=== PATIENT | female | born 1935 | race Caucasian/White ===

== ENCOUNTER 2020-09-25 20:50 | Inpatient (IN) | payer MEDICARE ==
[~2020-09-25] VITALS: Ht 162.6 cm; Wt 77.7 kg
[~2020-09-25 20:50] MED LIST: BUPR100T6 PO; ESOM40CA25 PO; FOLI1TAB16 PO; HYDR-3135 PO; IBUP200T77 PO; LOSA100T14 PO; LOSA25TA54 PO; METH2.5T PO; METO-239 PO; PHEN-318 PO; SERT-267 PO; TAMS0.4C97 PO; TOFA5TAB PO
[2020-09-25] MEDS ORDERED: cefTRIAXone IV Push 1 GM VIAL. IVP ONE (21:45)
[2020-09-25] MEDS ORDERED: IV NORMAL SALINE 1000ML BAG 1,000 ML IV ONE (21:45)
[2020-09-25 22:13] LABS: CALCIUM 9.1 mg/dL (8.5-10.1); CREATININE 2.6 mg/dL (0.6-1.0); GFR 17.5; POTASSIUM 3.6 mmol/L (3.5-5.1)
[2020-09-25 22:22] LABS: BASO # 0.1 x10^3/uL (0.0-0.2); BASO % 0 % (0-3); EOS # 0.1 x10^3/uL (0.0-0.7); EOS % 1 % (0-3); HEMATOCRIT 24.6 % (36.0-47.0); HEMOGLOBIN 7.1 g/dL (12.0-15.5); LYMPH # 0.7 x10^3/uL (1.0-4.8); LYMPH % 5 % (24-48); MEAN CORPUSCULAR HEMOGLOBIN 19 pg (25-35); MEAN CORPUSCULAR HGB CONC 29 g/dL (31-37); MEAN CORPUSCULAR VOLUME 65 fL (79-100); MONO # 1.2 x10^3/uL (0.0-1.1); MONO % 9 % (0-9); NEUT # 11.7 x10^3/uL (1.8-7.7); NEUT % 85 % (31-73); PLATELET COUNT 226 x10^3/uL (140-400); RED BLOOD COUNT 3.77 x10^6/uL (3.50-5.40); RED CELL DISTRIBUTION WIDTH 18.8 % (11.5-14.5); WHITE BLOOD COUNT 13.8 x10^3/uL (4.0-11.0)
[2020-09-25 22:29] LABS: BILIRUBIN,URINE NEGATIVE (NEG); CLARITY,URINE CLOUDY; COLOR,URINE YELLOW; NITRITE,URINE NEGATIVE (NEG); PH,URINE 5.5 (<5.0-8.0); PROTEIN,URINE 100 mg/dL (NEG-TRACE)
[2020-09-25 22:36] LABS: BACTERIA,URINE MANY /HPF (0-FEW); WBC,URINE >40 /HPF (0-4)
[2020-09-25 22:50] LABS: % BANDS 9 % (0-9); % EOS 1 % (0-5); % LYMPHS 5 % (24-48); % MONOS 7 % (0-10); % MYELOS 1 % (0-0); % SEGS 77 % (35-66); NUCLEATED RBC 1
[2020-09-25 22:51] LABS: PLT ESTIMATE ADEQUATE (ADEQUATE); TOXIC GRANULATION MOD
[2020-09-25 22:52] LABS: ANISOCYTOSIS SLIGHT; MICROCYTOSIS MARKED
[2020-09-25 22:53] LABS: POLYCHROMASIA SLIGHT
[2020-09-25 22:54] LABS: HYPOCHROMIA MOD; SCHISTOCYTES OCC
--- NOTE | 2020-09-25 23:58 | ED.ADGEN ---
Past Medical History Past Medical History: Anxiety, Arthritis, Diabetes-Type II, Hypertension, Other Additional Past Medical Histor: RA, CONFEDERATED SALISH BILATERAL EARS Past Surgical History: Hip Replacement, Knee Replacement, Other Additional Past Surgical Histo: BILATERAL HIP AND KNEE REPLACEMENTS Smoking Status: Never Smoker Alcohol Use: None Drug Use: None General Adult EDM: Chief Complaint: WEAKNESS/GENERALIZED HPI: HPI: Patient is an 85-year-old female who presents to the Emergency Room with severe fatigue. She has been unable to take care of herself the last couple of days. She typically lives alone and uses a walker. Family has had a difficult time hel ping her up to get to the bathroom due to her weakness. She was diagnosed yesterday with a UTI and has been on antibiotics. She has not been eating or drinking much over the last couple of days. She denies any kind of pain. She has not had any known fevers. Review of Systems: Review of Systems: Complete ROS is negative unless otherwise documented in HPI Current Medications: Current Medications Medications (Trade) Dose Ordered Sig/Tracy Start Time Stop Time Status Last Admin Dose Admin Ceftriaxone Sodium (Rocephin) 1 gm 1X ONCE 09/25/20 21:45 09/25/20 21:46 DC 09/25/20 21:54 1 GM Sodium Chloride 1,000 ml @ 125 mls/hr Q8H 09/26/20 00:00 09/27/20 23:59 09/26/20 00:57 125 MLS/HR Allergies: Allergies: Allergies Coded Allergies Type Severity Reaction Last Updated Verified No Known Drug Allergies 10/07/14 No Physical Exam: PE: General: Awake, alert, NAD. Fatigued, falls asleep during interview HEENT: Atraumatic, EOMI, PERRL, airway patent, dry oral mucosa Neck: Supple, trachea midline Respiratory: CTA bilaterally, normal effort, no wheezing/crackles CV: RRR, no murmur, cap refill <2 GI: Soft, nondistended, nontender, no masses MSK: No obvious deformities Skin: Warm, dry, intact Neuro: A&O x3, speech NL, sensory and motor grossly intact, no focal deficits Psych: Normal affect, normal mood, not suicidal or homicidal Current Patient Data: Labs: Laboratory Tests Test 09/25/20 21:35 09/25/20 22:22 White Blood Count 13.8 x10^3/uL (4.0-11.0) H Red Blood Count 3.77 x10^6/uL (3.50-5.40) Hemoglobin 7.1 g/dL (12.0-15.5) L Hematocrit 24.6 % (36.0-47.0) L Mean Corpuscular Volume 65 fL (79-100) L Mean Corpuscular Hemoglobin 19 pg (25-35) L Mean Corpuscular Hemoglobin Concent 29 g/dL (31-37) L Red Cell Distribution Width 18.8 % (11.5-14.5) H Platelet Count 226 x10^3/uL (140-400) Neutrophils (%) (Auto) 85 % (31-73) H Lymphocytes (%) (Auto) 5 % (24-48) L Monocytes (%) (Auto) 9 % (0-9) Eosinophils (%) (Auto) 1 % (0-3) Basophils (%) (Auto) 0 % (0-3) Neutrophils # (Auto) 11.7 x10^3/uL (1.8-7.7) H Lymphocytes # (Auto) 0.7 x10^3/uL (1.0-4.8) L Monocytes # (Auto) 1.2 x10^3/uL (0.0-1.1) H Eosinophils # (Auto) 0.1 x10^3/uL (0.0-0.7) Basophils # (Auto) 0.1 x10^3/uL (0.0-0.2) Segmented Neutrophils % 77 % (35-66) H Band Neutrophils % 9 % (0-9) Lymphocytes % 5 % (24-48) L Monocytes % 7 % (0-10) Eosinophils % 1 % (0-5) Myelocytes % 1 % (0-0) H Nucleated Red Blood Cells 1 Toxic Granulation Mod Platelet Estimate Adequate (ADEQUATE) Polychromasia Slight Hypochromasia Mod Anisocytosis Slight Microcytosis Marked Schistocytes Occ Sodium Level 133 mmol/L (136-145) L Potassium Level 3.6 mmol/L (3.5-5.1) Chloride Level 102 mmol/L (98-107) Carbon Dioxide Level 20 mmol/L (21-32) L Anion Gap 11 (6-14) Blood Urea Nitrogen 46 mg/dL (7-20) H Creatinine 2.6 mg/dL (0.6-1.0) H Estimated GFR (Cockcroft-Gault) 17.5 Glucose Level 173 mg/dL (70-99) H Calcium Level 9.1 mg/dL (8.5-10.1) Urine Collection Type U cath Urine Color Yellow Urine Clarity Cloudy Urine pH 5.5 (<5.0-8.0) Urine Specific [place] 1.015 (1.000-1.030) Urine Protein 100 mg/dL (NEG-TRACE) Urine Glucose (UA) Negative mg/dL (NEG) Urine Ketones (Stick) Negative mg/dL (NEG) Urine Blood Moderate (NEG) Urine Nitrite Negative (NEG) Urine Bilirubin Negative (NEG) Urine Urobilinogen Dipstick 1.0 mg/dL (0.2 mg/dL) Urine Leukocyte Esterase Large (NEG) Urine RBC 11-20 /HPF (0-2) Urine WBC >40 /HPF (0-4) Urine Squamous Epithelial Cells Mod /LPF Urine Transitional Epithelial Cells Occ /LPF Urine Bacteria Many /HPF (0-FEW) Urine Mucus Mod /LPF Laboratory Tests 09/25/20 21:35 Laboratory Tests 09/25/20 21:35 Vital Signs: Vital Signs Date Time Temp Pulse Resp B/P (MAP) Pulse Ox O2 Delivery O2 Flow Rate FiO2 09/25/20 23:50 80 92 09/25/20 20:55 97.6 15 129/48 (75) Room Air 97.6 EKG: EKG: [] Heart Score: Risk Factors: Risk Factors: DM, Current or recent (<one month) smoker, HTN, HLP, family history of CAD, obesity. Risk Scores: Score 0 - 3: 2.5% MACE over next 6 weeks - Discharge Home Score 4 - 6: 20.3% MACE over next 6 weeks - Admit for Clinical Observation Score 7 - 10: 72.7% MACE over next 6 weeks - Early Invasive Strategies Radiology/Procedures: Radiology/Procedures: [] Course & Med Decision Making: Course & Med Decision Making Pertinent Labs and Imaging studies reviewed. (See chart for details) Patient is an 85-year-old female who presents to the emergency room with severe fatigue. She has had this previously with significant UTIs. Lab work was done and patient appears to have severe dehydration with an acute kidney injury. She also has a significant UTI. She was given fluids and IV antibiotics. She will be started on further fluids and will be admitted for further care and evaluation. Caleb Disclaimer: Caleb Disclaimer: This electronic medical record was generated, in whole or in part, using a voice recognition dictation system. Departure Departure Impression: Primary Impression: Urinary tract infection Additional Impressions: Dehydration KENNA (acute kidney injury) Disposition: 09 ADMITTED INPT THIS HOSP Condition: IMPROVED Referrals: BRIAN RIVAS MD (PCP) Problem Qualifiers CARMENZA SCOTT MD Sep 25, 2020 23:58
[2020-09-26] VITALS (7 sets, daily range): BP systolic 145–170; BP diastolic 58–93
[2020-09-26] MEDS ORDERED: ONDANSETRON PF 4 MG/2 ML VIAL. IV PRN (00:30)
[2020-09-26] MEDS ORDERED: DEXTROSE 50% 25 GM / 50ML DISP.SYRIN. IV PRN (00:30)
[2020-09-26] MEDS: IV NORMAL SALINE 1000ML BAG 1,000 ML IV SCH ×3 (00:57→15:42)
[2020-09-26] MEDS ORDERED: TRAM50TA PO (01:23)
[2020-09-26] MEDS ORDERED: SERT-268 PO (01:23)
[2020-09-26] MEDS ORDERED: ALPR0.5T6 PO (01:23)
[2020-09-26] MEDS ORDERED: BUPR150T21 PO (01:23)
[2020-09-26] MEDS ORDERED: HYDR-2767 PO (01:23)
[2020-09-26] MEDS: traMADol 50 MG TABLET PO PRN ×2 (01:31→10:29)
--- NOTE | 2020-09-26 03:00 | NUR ---
ADMIT NOTE The patient, TAMIKA STILES, 85 y/o, F admitted by MAUREEN GUARDADO MD, was given written information regarding hospital policies, unit procedures and contact persons. Patient orientated to room, plan of care discussed and admit packet reviewed. Patient's home medications verified and preferred pharmacy updated; patient reports NKDA. Patient now in bed, bed in lowest/locked position, call light within reach and no other needs voiced at this time.
[2020-09-26] MEDS: INSULIN LISPRO 300 UNITS/3 ML VIAL. SQ SCH ×3 (07:37→16:58)
[2020-09-26] MEDS: METOPROLOL SUCC 24HR ER 25 MG TAB.ER.24H. PO SCH (08:24)
[2020-09-26] MEDS: PANTOPRAZOLE 40 MG TABLET.DR. PO SCH (08:25)
[2020-09-26] MEDS: FOLIC ACID 1 MG TABLET. PO SCH (08:25)
[2020-09-26] MEDS: buPROPion 100 MG TABLET. PO SCH (08:25)
[2020-09-26] MEDS: TAMSULOSIN 0.4 MG CAP.ER.24H. PO SCH (08:25)
[2020-09-26] MEDS: SERTRALINE 50 MG TABLET. PO SCH (08:25)
[2020-09-26 09:03] LABS: CALCIUM 8.3 mg/dL (8.5-10.1); CREATININE 2.3 mg/dL (0.6-1.0); GFR 20.1; POTASSIUM 3.3 mmol/L (3.5-5.1)
[2020-09-26] MEDS: POTASSIUM CHLORIDE 20 MEQ TABLET.ER. PO SCH ×2 (14:46→16:36)
--- NOTE | 2020-09-26 19:45 | PDOC1 ---
History and Physical Date of Admission Date of Admission 09/26/2020 Identification/Chief Complaint Chief Complaint Weakness Source Source: Chart review, Patient History of Present Illness History of Present Illness Patient is an 85-year-old female with past medical history of diabetes type 2 essential hypertension anxiety and arthritis who was in her usual state of he alth until approximately 24 hours prior to her admission. Apparently the patient lives by herself and over the course of the last week more or less the patient has been more fatigued and unable to care for herself. She certainly looks quite dehydrated during my encounter and apparently was diagnosed with a urinary tract infection. She has not had proper oral intake most likely s econdary to her advancing age and unable to take care of the activities of daily living. The patient does not refer any pain at the time of my evaluation she denies any fever no chills no back pain no CVA tenderness no nausea vomiting or right diarrhea was reported. The patient was evaluated in the emergency department and found to have an acute renal failure and evidence of a urinary tract infection reason why we were asked to admit the patient for further treatment. The patient at the time of my note is laying in bed in no acute distress she is able to drink water and I have encouraged to increase her level of activity as tolerated. Plan of care has been explained detail and all of her concerns were addressed to the best of my abilities. Patient is not a very good historian due to his acuity at the moment. We will reassess in the a.m. Most likely the patient will have to transition to an institution prior to returning to her home if she ever returns given the frailty that she came to the emergency department with Past Medical History Cardiovascular: HTN, Hyperlipidemia Pulmonary: COPD Endocrine: Diabetes Past Surgical History Past Surgical History: Total hip replacement, Total knee replacement Family History Family History: No Significant Social History Smoke: No ALCOHOL: none Drugs: None Current Problem List Problem List Problems Medical Problems: (1) KENNA (acute kidney injury) Status: Acute (2) Dehydration Status: Acute (3) Urinary tract infection Status: Acute Current Medications Current Medications Current Medications Medications (Trade) Dose Ordered Sig/Tracy Start Time Stop Time Status Last Admin Dose Admin Acetaminophen (Tylenol) 650 mg PRN Q4HRS PRN 09/26/20 00:30 Bupropion HCl (Wellbutrin) 200 mg DAILY 09/26/20 09:00 09/26/20 08:25 200 MG Ceftriaxone Sodium (Rocephin) 1 gm Q24H 09/26/20 21:00 Dextrose (Dextrose 50%-Water Syringe) 12.5 gm PRN Q15MIN PRN 09/26/20 00:30 Folic Acid (Folic Acid) 1 mg DAILY 09/26/20 09:00 09/26/20 08:25 1 MG Insulin Human Lispro (HumaLOG) 0-7 UNITS TIDWMEALS 09/26/20 08:00 Metoprolol Succinate (Toprol Xl) 50 mg DAILY 09/26/20 09:00 09/26/20 08:24 50 MG Morphine Sulfate (Morphine Sulfate) 2 mg PRN Q4HRS PRN 09/26/20 00:30 Ondansetron HCl (Zofran) 4 mg PRN Q4HRS PRN 09/26/20 00:30 Pantoprazole Sodium (Protonix) 40 mg DAILYAC 09/26/20 07:30 09/26/20 08:25 40 MG Potassium Chloride (Klor-Con) 40 meq Q2H 09/26/20 14:45 09/26/20 16:46 DC 09/26/20 16:36 40 MEQ Sertraline HCl (Zoloft) 50 mg DAILY 09/26/20 09:00 09/26/20 08:25 50 MG Sodium Chloride 1,000 ml @ 125 mls/hr Q8H 09/26/20 00:00 09/27/20 23:59 09/26/20 15:42 125 MLS/HR Tamsulosin HCl (Flomax) 0.4 mg DAILY 09/26/20 09:00 09/26/20 08:25 0.4 MG Tramadol HCl (Ultram) 50 mg PRN Q6HRS PRN 09/26/20 00:30 09/26/20 10:29 50 MG Allergies Allergies Allergies Coded Allergies Type Severity Reaction Last Updated Verified No Known Drug Allergies 10/07/14 No ROS Review of System Review of systems pertinent as per HPI otherwise 14 point review of system is negative Physical Exam Physical Exam General: Awake, alert, NAD. Fatigued, falls asleep during interview HEENT: Atraumatic, EOMI, PERRL, airway patent, dry oral mucosa Neck: Supple, trachea midline Respiratory: CTA bilaterally, normal effort, no wheezing/crackles CV: RRR, no murmur, cap refill <2 GI: Soft, nondistended, nontender, no masses MSK: No obvious deformities Skin: Warm, dry, intact Neuro: A&O x3, speech NL, sensory and motor grossly intact, no focal deficits Psych: Normal affect, normal mood, not suicidal or homicidal Vitals Vitals Vital Signs Date Time Temp Pulse Resp B/P (MAP) Pulse Ox O2 Delivery O2 Flow Rate FiO2 09/26/20 14:46 98.2 81 18 145/61 (89) 95 Room Air 98.2 Labs Labs Laboratory Tests Test 09/25/20 21:35 09/25/20 22:22 09/26/20 07:20 09/26/20 08:09 White Blood Count 13.8 x10^3/uL (4.0-11.0) Red Blood Count 3.77 x10^6/uL (3.50-5.40) Hemoglobin 7.1 g/dL (12.0-15.5) Hematocrit 24.6 % (36.0-47.0) Mean Corpuscular Volume 65 fL (79-100) Mean Corpuscular Hemoglobin 19 pg (25-35) Mean Corpuscular Hemoglobin Concent 29 g/dL (31-37) Red Cell Distribution Width 18.8 % (11.5-14.5) Platelet Count 226 x10^3/uL (140-400) Neutrophils (%) (Auto) 85 % (31-73) Lymphocytes (%) (Auto) 5 % (24-48) Monocytes (%) (Auto) 9 % (0-9) Eosinophils (%) (Auto) 1 % (0-3) Basophils (%) (Auto) 0 % (0-3) Neutrophils # (Auto) 11.7 x10^3/uL (1.8-7.7) Lymphocytes # (Auto) 0.7 x10^3/uL (1.0-4.8) Monocytes # (Auto) 1.2 x10^3/uL (0.0-1.1) Eosinophils # (Auto) 0.1 x10^3/uL (0.0-0.7) Basophils # (Auto) 0.1 x10^3/uL (0.0-0.2) Segmented Neutrophils % 77 % (35-66) Band Neutrophils % 9 % (0-9) Lymphocytes % 5 % (24-48) Monocytes % 7 % (0-10) Eosinophils % 1 % (0-5) Myelocytes % 1 % (0-0) Nucleated Red Blood Cells 1 Toxic Granulation Mod Platelet Estimate Adequate (ADEQUATE) Polychromasia Slight Hypochromasia Mod Anisocytosis Slight Microcytosis Marked Schistocytes Occ Sodium Level 133 mmol/L (136-145) 136 mmol/L (136-145) Potassium Level 3.6 mmol/L (3.5-5.1) 3.3 mmol/L (3.5-5.1) Chloride Level 102 mmol/L (98-107) 103 mmol/L (98-107) Carbon Dioxide Level 20 mmol/L (21-32) 19 mmol/L (21-32) Anion Gap 11 (6-14) 14 (6-14) Blood Urea Nitrogen 46 mg/dL (7-20) 45 mg/dL (7-20) Creatinine 2.6 mg/dL (0.6-1.0) 2.3 mg/dL (0.6-1.0) Estimated GFR (Cockcroft-Gault) 17.5 20.1 Glucose Level 173 mg/dL (70-99) 116 mg/dL (70-99) Calcium Level 9.1 mg/dL (8.5-10.1) 8.3 mg/dL (8.5-10.1) Urine Collection Type U cath Urine Color Yellow Urine Clarity Cloudy Urine pH 5.5 (<5.0-8.0) Urine Specific [place] 1.015 (1.000-1.030) Urine Protein 100 mg/dL (NEG-TRACE) Urine Glucose (UA) Negative mg/dL (NEG) Urine Ketones (Stick) Negative mg/dL (NEG) Urine Blood Moderate (NEG) Urine Nitrite Negative (NEG) Urine Bilirubin Negative (NEG) Urine Urobilinogen Dipstick 1.0 mg/dL (0.2 mg/dL) Urine Leukocyte Esterase Large (NEG) Urine RBC 11-20 /HPF (0-2) Urine WBC >40 /HPF (0-4) Urine Squamous Epithelial Cells Mod /LPF Urine Transitional Epithelial Cells Occ /LPF Urine Bacteria Many /HPF (0-FEW) Urine Mucus Mod /LPF Glucose (Fingerstick) 104 mg/dL (70-99) Phosphorus Level 3.9 mg/dL (2.6-4.7) Iron Level 13 ug/dL (50-170) Total Iron Binding Capacity 248 ug/dL (250-450) Iron Saturation 5 % (15-34) Test 09/26/20 11:29 09/26/20 16:21 Glucose (Fingerstick) 121 mg/dL (70-99) 128 mg/dL (70-99) Laboratory Tests Test 09/25/20 21:35 09/25/20 22:22 09/26/20 07:20 09/26/20 08:09 White Blood Count 13.8 x10^3/uL (4.0-11.0) Red Blood Count 3.77 x10^6/uL (3.50-5.40) Hemoglobin 7.1 g/dL (12.0-15.5) Hematocrit 24.6 % (36.0-47.0) Mean Corpuscular Volume 65 fL (79-100) Mean Corpuscular Hemoglobin 19 pg (25-35) Mean Corpuscular Hemoglobin Concent 29 g/dL (31-37) Red Cell Distribution Width 18.8 % (11.5-14.5) Platelet Count 226 x10^3/uL (140-400) Neutrophils (%) (Auto) 85 % (31-73) Lymphocytes (%) (Auto) 5 % (24-48) Monocytes (%) (Auto) 9 % (0-9) Eosinophils (%) (Auto) 1 % (0-3) Basophils (%) (Auto) 0 % (0-3) Neutrophils # (Auto) 11.7 x10^3/uL (1.8-7.7) Lymphocytes # (Auto) 0.7 x10^3/uL (1.0-4.8) Monocytes # (Auto) 1.2 x10^3/uL (0.0-1.1) Eosinophils # (Auto) 0.1 x10^3/uL (0.0-0.7) Basophils # (Auto) 0.1 x10^3/uL (0.0-0.2) Segmented Neutrophils % 77 % (35-66) Band Neutrophils % 9 % (0-9) Lymphocytes % 5 % (24-48) Monocytes % 7 % (0-10) Eosinophils % 1 % (0-5) Myelocytes % 1 % (0-0) Nucleated Red Blood Cells 1 Toxic Granulation Mod Platelet Estimate Adequate (ADEQUATE) Polychromasia Slight Hypochromasia Mod Anisocytosis Slight Microcytosis Marked Schistocytes Occ Sodium Level 133 mmol/L (136-145) 136 mmol/L (136-145) Potassium Level 3.6 mmol/L (3.5-5.1) 3.3 mmol/L (3.5-5.1) Chloride Level 102 mmol/L (98-107) 103 mmol/L (98-107) Carbon Dioxide Level 20 mmol/L (21-32) 19 mmol/L (21-32) Anion Gap 11 (6-14) 14 (6-14) Blood Urea Nitrogen 46 mg/dL (7-20) 45 mg/dL (7-20) Creatinine 2.6 mg/dL (0.6-1.0) 2.3 mg/dL (0.6-1.0) Estimated GFR (Cockcroft-Gault) 17.5 20.1 Glucose Level 173 mg/dL (70-99) 116 mg/dL (70-99) Calcium Level 9.1 mg/dL (8.5-10.1) 8.3 mg/dL (8.5-10.1) Urine Collection Type U cath Urine Color Yellow Urine Clarity Cloudy Urine pH 5.5 (<5.0-8.0) Urine Specific [place] 1.015 (1.000-1.030) Urine Protein 100 mg/dL (NEG-TRACE) Urine Glucose (UA) Negative mg/dL (NEG) Urine Ketones (Stick) Negative mg/dL (NEG) Urine Blood Moderate (NEG) Urine Nitrite Negative (NEG) Urine Bilirubin Negative (NEG) Urine Urobilinogen Dipstick 1.0 mg/dL (0.2 mg/dL) Urine Leukocyte Esterase Large (NEG) Urine RBC 11-20 /HPF (0-2) Urine WBC >40 /HPF (0-4) Urine Squamous Epithelial Cells Mod /LPF Urine Transitional Epithelial Cells Occ /LPF Urine Bacteria Many /HPF (0-FEW) Urine Mucus Mod /LPF Glucose (Fingerstick) 104 mg/dL (70-99) Phosphorus Level 3.9 mg/dL (2.6-4.7) Iron Level 13 ug/dL (50-170) Total Iron Binding Capacity 248 ug/dL (250-450) Iron Saturation 5 % (15-34) Test 09/26/20 11:29 09/26/20 16:21 Glucose (Fingerstick) 121 mg/dL (70-99) 128 mg/dL (70-99) VTE Prophylaxis Ordered VTE Prophylaxis Devices: No VTE Pharmacological Prophylaxi: Yes Assessment/Plan Assessment/Plan Acute renal failure secondary to prerenal azotemia most likely Severe dehydration Leukocytosis secondary to urinary tract infection Urinary tract infection Microcytic anemia Hypokalemia Hyperglycemia secondary to diabetes currently of no clinical significance Failure to thrive Plan We will send urine electrolytes and urine creatinine Replace hypokalemia IV fluid resuscitation Repeat labs in the a.m. Physical therapy evaluation Follow cultures Continue with broad-spectrum antibiotics empirically DVT prophylaxis with heparin Justifications for Admission Other Justification LYNDA MILIAN MD Sep 26, 2020 19:45
[2020-09-26] MEDS: cefTRIAXone IV Push 1 GM VIAL. IVP SCH (22:20)
[2020-09-26] MEDS: HEPARIN for SUB-Q USE 5,000 UNIT/ML VIAL. SQ SCH (22:23)
--- NOTE | 2020-09-26 23:00 | NUR ---
Patient noted to have increased respirations at 24, labored, and O2 sat 88% on room air. Patient placed on oxygen at 2 liters and MD paged. Reported respiratory status to MD including crackles in posterior bases and patient placed on oxygen to improve O2 sat. Received order to DC IVF. IVF DC'D at 2302. RN will continue to monitor patient.
[2020-09-27] VITALS (7 sets, daily range): BP systolic 116–176; BP diastolic 50–61
[2020-09-27 07:33] LABS: BASO % 0 % (0-3); EOS # 0.1 x10^3/uL (0.0-0.7); EOS % 0 % (0-3); HEMATOCRIT 21.2 % (36.0-47.0); LYMPH # 0.6 x10^3/uL (1.0-4.8); LYMPH % 4 % (24-48); MEAN CORPUSCULAR HEMOGLOBIN 19 pg (25-35); MEAN CORPUSCULAR HGB CONC 30 g/dL (31-37); MEAN CORPUSCULAR VOLUME 64 fL (79-100); MONO % 7 % (0-9); NEUT # 12.1 x10^3/uL (1.8-7.7); NEUT % 88 % (31-73); PLATELET COUNT 207 x10^3/uL (140-400); RED BLOOD COUNT 3.31 x10^6/uL (3.50-5.40); WHITE BLOOD COUNT 13.9 x10^3/uL (4.0-11.0)
--- NOTE | 2020-09-27 07:33 | NUR ---
Patients daughter Alivia called asking about her mother, let daughter know she was sleeping, daughter said "so for all you know shes unconscious" I advised no she is sleeping, daughter stated She is not ok you said she was ok yesterday and she was almost , advised daughter that UTI can have an effect on Mental status. Daughter refused to listen and stated is on her way here.
[2020-09-27 07:36] LABS: CALCIUM 8.5 mg/dL (8.5-10.1); GFR 23.6; POTASSIUM 3.8 mmol/L (3.5-5.1)
[2020-09-27] MEDS: INSULIN LISPRO 300 UNITS/3 ML VIAL. SQ SCH ×3 (07:41→16:56)
[2020-09-27 07:42] LABS: HEMOGLOBIN 6.3 g/dL (12.0-15.5)
[2020-09-27] MEDS: TAMSULOSIN 0.4 MG CAP.ER.24H. PO SCH (07:49)
[2020-09-27] MEDS: SERTRALINE 50 MG TABLET. PO SCH (07:49)
[2020-09-27] MEDS: METOPROLOL SUCC 24HR ER 25 MG TAB.ER.24H. PO SCH (07:49)
[2020-09-27] MEDS: PANTOPRAZOLE 40 MG TABLET.DR. PO SCH (07:49)
[2020-09-27] MEDS: FOLIC ACID 1 MG TABLET. PO SCH (07:49)
[2020-09-27] MEDS: buPROPion 100 MG TABLET. PO SCH (07:49)
[2020-09-27] MEDS: HEPARIN for SUB-Q USE 5,000 UNIT/ML VIAL. SQ SCH ×2 (07:55→22:22)
[2020-09-27] MEDS ORDERED: POTASSIUM CHLORIDE 20 MEQ TABLET.ER. PO ONE (08:15)
[2020-09-27] MEDS ORDERED: FUROSEMIDE 40 MG/4 ML VIAL. IVP ONE (08:15)
--- NOTE | 2020-09-27 08:40 | NUR ---
Pt's daughter Alivia in to see pt. Daughter notified of pt's low Hgb today and need for blood transfusion. Daughter agreeable to sign consents. Daughter upset voicing how she was not happy with pt's care yesterday. Pt's daughter demanding to obtain current medical records at this time. Daughter educated on hospital policy of obtaining records through medical records department after discharge. Pt's daughter not accepting of hospital policy, notified nursing technical supervisor would be contacted to see if there were any acceptions to the policy. Lavinia RN nursing technical supervisor contacted, stated there are no acceptions to the policy to obtain medical records. She is also upset that she has not seen the DrGregorio since coming in to visit pt approximately 0830. Pt. then states she wanted to now VS, meds given and lab results, she was notfied RN could inform her of those items. She verbalized understanding at this time. Addendum: 09/27/20 at 1032 by KERWIN MATHEW RN Dr. Lopez notified of pt's daughter's concerns.
--- NOTE | 2020-09-27 10:10 | PDOC ---
PROGRESS NOTES Date of Service: DATE: 09/27/20 TIME: 10:07 Chief Complaint Chief Complaint Acute renal failure secondary to prerenal azotemia most likely Severe dehydration Leukocytosis secondary to urinary tract infection Urinary tract infection, follow cultures Microcytic anemia Hypokalemia Hyperglycemia secondary to diabetes currently of no clinical significance Failure to thrive Plan We will send urine electrolytes and urine creatinine Replace hypokalemia IV fluid resuscitation had to be stomped secondary to reports of dyspnea in the middle of the night. Urinary output has been marginal as per nursing staff We will give 1 unit of PRBCs and administer 40 mg of Lasix IV push prior to mini barak the risk of transfusion related fluid overload Repeat labs in the a.m. Physical therapy evaluation Follow cultures Continue with broad-spectrum antibiotics empirically with ceftriaxone DVT prophylaxis with heparin Greater than 45 minutes spent in care of the patient in [id number] contact counseling coordination of care. Discussed with RN at bedside History of Present Illness History of Present Illness History of Present Illness Patient is an 85-year-old female with past medical history of diabetes type 2 essential hypertension anxiety and arthritis who was in her usual state of health until approximately 24 hours prior to her admission. Apparently the patient lives by herself and over the course of the last week more or less the patient has been more fatigued and unable to care for herself. She certainly looks quite dehydrated during my encounter and apparently was diagnosed with a urinary tract infection. She has not had proper oral intake most likely secondary to her advancing age and unable to take care of the activities of daily living. The patient does not refer any pain at the time of my evaluation she denies any fever no chills no back pain no CVA tenderness no nausea vomiting or right diarrhea was reported. The patient was evaluated in the emergency department and found to have an acute renal failure and evidence of a urinary tract infection reason why we were asked to admit the patient for further treatment. The patient at the time of my note is laying in bed in no acute distress she is able to drink water and I have encouraged to increase her level of activity as tolerated. Plan of care has been explained detail and all of her concerns were addressed to the best of my abilities. Patient is not a very good historian due to his acuity at the moment. We will reassess in the a.m. Most likely the patient will have to transition to an institution prior to returning to her home if she ever returns given the frailty that she came to the emergency department with 09/27: Patient much better compared to yesterday. Her mentation has definitely improved no complaints during my visit denies any headache blurred vision no nausea no vomiting no diarrhea hemoglobin reported earlier noted. Transfusion of 1 unit of packed red blood cell has been ordered. We will do iron studies prior to the infusion Vitals Vitals Vital Signs Date Time Temp Pulse Resp B/P (MAP) Pulse Ox O2 Delivery O2 Flow Rate FiO2 09/27/20 08:00 Room Air 09/27/20 07:49 72 163/61 09/27/20 07:00 98.9 20 96 98.9 09/27/20 03:00 2.0 Physical Exam Lungs: Clear Labs LABS Laboratory Tests Test 09/26/20 11:29 09/26/20 16:21 09/26/20 20:48 09/26/20 23:30 Glucose (Fingerstick) 121 mg/dL (70-99) 128 mg/dL (70-99) 132 mg/dL (70-99) Urine Random Creatinine 41.8 mg/dL (Not Establ.) Test 09/27/20 06:51 09/27/20 07:15 White Blood Count 13.9 x10^3/uL (4.0-11.0) Red Blood Count 3.31 x10^6/uL (3.50-5.40) Hemoglobin 6.3 g/dL (12.0-15.5) Hematocrit 21.2 % (36.0-47.0) Mean Corpuscular Volume 64 fL (79-100) Mean Corpuscular Hemoglobin 19 pg (25-35) Mean Corpuscular Hemoglobin Concent 30 g/dL (31-37) Red Cell Distribution Width 19.0 % (11.5-14.5) Platelet Count 207 x10^3/uL (140-400) Neutrophils (%) (Auto) 88 % (31-73) Lymphocytes (%) (Auto) 4 % (24-48) Monocytes (%) (Auto) 7 % (0-9) Eosinophils (%) (Auto) 0 % (0-3) Basophils (%) (Auto) 0 % (0-3) Neutrophils # (Auto) 12.1 x10^3/uL (1.8-7.7) Lymphocytes # (Auto) 0.6 x10^3/uL (1.0-4.8) Monocytes # (Auto) 1.0 x10^3/uL (0.0-1.1) Eosinophils # (Auto) 0.1 x10^3/uL (0.0-0.7) Basophils # (Auto) 0.0 x10^3/uL (0.0-0.2) Sodium Level 138 mmol/L (136-145) Potassium Level 3.8 mmol/L (3.5-5.1) Chloride Level 109 mmol/L (98-107) Carbon Dioxide Level 16 mmol/L (21-32) Anion Gap 13 (6-14) Blood Urea Nitrogen 35 mg/dL (7-20) Creatinine 2.0 mg/dL (0.6-1.0) Estimated GFR (Cockcroft-Gault) 23.6 Glucose Level 122 mg/dL (70-99) Calcium Level 8.5 mg/dL (8.5-10.1) Glucose (Fingerstick) 139 mg/dL (70-99) Review of Systems Review of Systems review of systems pertinent as per HPI otherwise 14 point review of system is negative Assessment and Plan Assessmemt and Plan Problems Medical Problems: (1) KENNA (acute kidney injury) Status: Acute (2) Dehydration Status: Acute (3) Urinary tract infection Status: Acute Comment Review of Relevant I have reviewed the following items [place] (where applicable) has been applied. Labs Laboratory Tests Test 09/25/20 21:35 09/25/20 22:22 09/26/20 07:20 09/26/20 08:09 White Blood Count 13.8 x10^3/uL (4.0-11.0) Red Blood Count 3.77 x10^6/uL (3.50-5.40) Hemoglobin 7.1 g/dL (12.0-15.5) Hematocrit 24.6 % (36.0-47.0) Mean Corpuscular Volume 65 fL (79-100) Mean Corpuscular Hemoglobin 19 pg (25-35) Mean Corpuscular Hemoglobin Concent 29 g/dL (31-37) Red Cell Distribution Width 18.8 % (11.5-14.5) Platelet Count 226 x10^3/uL (140-400) Neutrophils (%) (Auto) 85 % (31-73) Lymphocytes (%) (Auto) 5 % (24-48) Monocytes (%) (Auto) 9 % (0-9) Eosinophils (%) (Auto) 1 % (0-3) Basophils (%) (Auto) 0 % (0-3) Neutrophils # (Auto) 11.7 x10^3/uL (1.8-7.7) Lymphocytes # (Auto) 0.7 x10^3/uL (1.0-4.8) Monocytes # (Auto) 1.2 x10^3/uL (0.0-1.1) Eosinophils # (Auto) 0.1 x10^3/uL (0.0-0.7) Basophils # (Auto) 0.1 x10^3/uL (0.0-0.2) Segmented Neutrophils % 77 % (35-66) Band Neutrophils % 9 % (0-9) Lymphocytes % 5 % (24-48) Monocytes % 7 % (0-10) Eosinophils % 1 % (0-5) Myelocytes % 1 % (0-0) Nucleated Red Blood Cells 1 Toxic Granulation Mod Platelet Estimate Adequate (ADEQUATE) Polychromasia Slight Hypochromasia Mod Anisocytosis Slight Microcytosis Marked Schistocytes Occ Sodium Level 133 mmol/L (136-145) 136 mmol/L (136-145) Potassium Level 3.6 mmol/L (3.5-5.1) 3.3 mmol/L (3.5-5.1) Chloride Level 102 mmol/L (98-107) 103 mmol/L (98-107) Carbon Dioxide Level 20 mmol/L (21-32) 19 mmol/L (21-32) Anion Gap 11 (6-14) 14 (6-14) Blood Urea Nitrogen 46 mg/dL (7-20) 45 mg/dL (7-20) Creatinine 2.6 mg/dL (0.6-1.0) 2.3 mg/dL (0.6-1.0) Estimated GFR (Cockcroft-Gault) 17.5 20.1 Glucose Level 173 mg/dL (70-99) 116 mg/dL (70-99) Calcium Level 9.1 mg/dL (8.5-10.1) 8.3 mg/dL (8.5-10.1) Urine Collection Type U cath Urine Color Yellow Urine Clarity Cloudy Urine pH 5.5 (<5.0-8.0) Urine Specific [place] 1.015 (1.000-1.030) Urine Protein 100 mg/dL (NEG-TRACE) Urine Glucose (UA) Negative mg/dL (NEG) Urine Ketones (Stick) Negative mg/dL (NEG) Urine Blood Moderate (NEG) Urine Nitrite Negative (NEG) Urine Bilirubin Negative (NEG) Urine Urobilinogen Dipstick 1.0 mg/dL (0.2 mg/dL) Urine Leukocyte Esterase Large (NEG) Urine RBC 11-20 /HPF (0-2) Urine WBC >40 /HPF (0-4) Urine Squamous Epithelial Cells Mod /LPF Urine Transitional Epithelial Cells Occ /LPF Urine Bacteria Many /HPF (0-FEW) Urine Mucus Mod /LPF Glucose (Fingerstick) 104 mg/dL (70-99) Phosphorus Level 3.9 mg/dL (2.6-4.7) Iron Level 13 ug/dL (50-170) Total Iron Binding Capacity 248 ug/dL (250-450) Iron Saturation 5 % (15-34) Test 09/26/20 11:29 09/26/20 16:21 09/26/20 20:48 09/26/20 23:30 Glucose (Fingerstick) 121 mg/dL (70-99) 128 mg/dL (70-99) 132 mg/dL (70-99) Urine Random Creatinine 41.8 mg/dL (Not Establ.) Test 09/27/20 06:51 09/27/20 07:15 White Blood Count 13.9 x10^3/uL (4.0-11.0) Red Blood Count 3.31 x10^6/uL (3.50-5.40) Hemoglobin 6.3 g/dL (12.0-15.5) Hematocrit 21.2 % (36.0-47.0) Mean Corpuscular Volume 64 fL (79-100) Mean Corpuscular Hemoglobin 19 pg (25-35) Mean Corpuscular Hemoglobin Concent 30 g/dL (31-37) Red Cell Distribution Width 19.0 % (11.5-14.5) Platelet Count 207 x10^3/uL (140-400) Neutrophils (%) (Auto) 88 % (31-73) Lymphocytes (%) (Auto) 4 % (24-48) Monocytes (%) (Auto) 7 % (0-9) Eosinophils (%) (Auto) 0 % (0-3) Basophils (%) (Auto) 0 % (0-3) Neutrophils # (Auto) 12.1 x10^3/uL (1.8-7.7) Lymphocytes # (Auto) 0.6 x10^3/uL (1.0-4.8) Monocytes # (Auto) 1.0 x10^3/uL (0.0-1.1) Eosinophils # (Auto) 0.1 x10^3/uL (0.0-0.7) Basophils # (Auto) 0.0 x10^3/uL (0.0-0.2) Sodium Level 138 mmol/L (136-145) Potassium Level 3.8 mmol/L (3.5-5.1) Chloride Level 109 mmol/L (98-107) Carbon Dioxide Level 16 mmol/L (21-32) Anion Gap 13 (6-14) Blood Urea Nitrogen 35 mg/dL (7-20) Creatinine 2.0 mg/dL (0.6-1.0) Estimated GFR (Cockcroft-Gault) 23.6 Glucose Level 122 mg/dL (70-99) Calcium Level 8.5 mg/dL (8.5-10.1) Glucose (Fingerstick) 139 mg/dL (70-99) Laboratory Tests Test 09/26/20 11:29 09/26/20 16:21 09/26/20 20:48 09/26/20 23:30 Glucose (Fingerstick) 121 mg/dL (70-99) 128 mg/dL (70-99) 132 mg/dL (70-99) Urine Random Creatinine 41.8 mg/dL (Not Establ.) Test 09/27/20 06:51 09/27/20 07:15 White Blood Count 13.9 x10^3/uL (4.0-11.0) Red Blood Count 3.31 x10^6/uL (3.50-5.40) Hemoglobin 6.3 g/dL (12.0-15.5) Hematocrit 21.2 % (36.0-47.0) Mean Corpuscular Volume 64 fL (79-100) Mean Corpuscular Hemoglobin 19 pg (25-35) Mean Corpuscular Hemoglobin Concent 30 g/dL (31-37) Red Cell Distribution Width 19.0 % (11.5-14.5) Platelet Count 207 x10^3/uL (140-400) Neutrophils (%) (Auto) 88 % (31-73) Lymphocytes (%) (Auto) 4 % (24-48) Monocytes (%) (Auto) 7 % (0-9) Eosinophils (%) (Auto) 0 % (0-3) Basophils (%) (Auto) 0 % (0-3) Neutrophils # (Auto) 12.1 x10^3/uL (1.8-7.7) Lymphocytes # (Auto) 0.6 x10^3/uL (1.0-4.8) Monocytes # (Auto) 1.0 x10^3/uL (0.0-1.1) Eosinophils # (Auto) 0.1 x10^3/uL (0.0-0.7) Basophils # (Auto) 0.0 x10^3/uL (0.0-0.2) Sodium Level 138 mmol/L (136-145) Potassium Level 3.8 mmol/L (3.5-5.1) Chloride Level 109 mmol/L (98-107) Carbon Dioxide Level 16 mmol/L (21-32) Anion Gap 13 (6-14) Blood Urea Nitrogen 35 mg/dL (7-20) Creatinine 2.0 mg/dL (0.6-1.0) Estimated GFR (Cockcroft-Gault) 23.6 Glucose Level 122 mg/dL (70-99) Calcium Level 8.5 mg/dL (8.5-10.1) Glucose (Fingerstick) 139 mg/dL (70-99) Medications Current Medications Sodium Chloride 1,000 ml @ 1,000 mls/hr 1X ONCE IV Last administered on 09/25/20at 21:54; Start 09/25/20 at 21:45; Stop 09/25/20 at 22:44; Status DC Ceftriaxone Sodium (Rocephin) 1 gm 1X ONCE IVP Last administered on 09/25/20at 21:54; Start 09/25/20 at 21:45; Stop 09/25/20 at 21:46; Status DC Sodium Chloride 1,000 ml @ 125 mls/hr Q8H IV Last administered on 09/26/20at 15 :42; Start 09/26/20 at 00:00; Stop 09/27/20 at 00:03; Status DC Ondansetron HCl (Zofran) 4 mg PRN Q4HRS PRN IV NAUSEA/VOMITING; Start 09/26/20 at 00:30 Acetaminophen (Tylenol) 650 mg PRN Q4HRS PRN PO TEMP OVER 100.4F OR MILD PAIN; Start 09/26/20 at 00:30 Morphine Sulfate (Morphine Sulfate) 2 mg PRN Q4HRS PRN IV PAIN; Start 09/26/20 at 00:30 Tramadol HCl (Ultram) 50 mg PRN Q6HRS PRN PO PAIN Last administered on 09/26/20at 10:29; Start 09/26/20 at 00:30 Insulin Human Lispro (HumaLOG) 0-7 UNITS TIDWMEALS SQ ; Start 09/26/20 at 08:00 Dextrose (Dextrose 50%-Water Syringe) 12.5 gm PRN Q15MIN PRN IV SEE COMMENTS; Start 09/26/20 at 00:30 Bupropion HCl (Wellbutrin) 200 mg DAILY PO Last administered on 09/27/20at 07:49; Start 09/26/20 at 09:00 Folic Acid (Folic Acid) 1 mg DAILY PO Last administered on 09/27/20at 07:49; Start 09/26/20 at 09:00 Metoprolol Succinate (Toprol Xl) 50 mg DAILY PO Last administered on 09/27/20at 07:49; Start 09/26/20 at 09:00 Sertraline HCl (Zoloft) 50 mg DAILY PO Last administered on 09/27/20at 07:49; Start 09/26/20 at 09:00 Tamsulosin HCl (Flomax) 0.4 mg DAILY PO Last administered on 09/27/20 07:49; Start 09/26/20 at 09:00 Pantoprazole Sodium (Protonix) 40 mg DAILYAC PO Last administered on 09/27/20at 07:49; Start 09/26/20 at 07:30 Potassium Chloride (Klor-Con) 40 meq Q2H PO Last administered on 09/26/20at 16:36; Start 09/26/20 at 14:45; Stop 09/26/20 at 16:46; Status DC Ceftriaxone Sodium (Rocephin) 1 gm Q24H IVP Last administered on 09/26/20at 22:20; Start 09/26/20 at 21:00 Heparin Sodium (Porcine) (Heparin Sodium) 5,000 unit Q12H SQ Last administered on 09/27/20at 07:55; Start 09/26/20 at 21:00 Furosemide (Lasix) 40 mg 1X ONCE IVP Last administered on 09/27/20at 08:19; Start 09/27/20 at 08:15; Stop 09/27/20 at 08:16; Status DC Potassium Chloride (Klor-Con) 40 meq 1X ONCE PO Last administered on 09/27/20at 08:19; Start 09/27/20 at 08:15; Stop 09/27/20 at 08:16; Status DC Active Scripts Active Flomax (Tamsulosin Hcl) 0.4 Mg Cap.er.24h 0.4 Mg PO DAILY Pyridium (Phenazopyridine Hcl) 200 Mg Tablet 200 Mg PO TID Reported Hydrocodone-Acetamin 10-325 mg (Hydrocodone/Acetaminophen) 1 Each Tablet 1 Tab PO Q6HRS Tramadol Hcl 50 Mg Tablet 1 Tab PO PRN Q6HRS PRN Bupropion Xl (Bupropion Hcl) 150 Mg Tab.er.24h 1 Tab PO QAM Sertraline Hcl 100 Mg Tablet 1 Tab PO DAILY Alprazolam 0.5 Mg Tablet 1 Tab PO PRN BID PRN Losartan Potassium 100 Mg Tablet 100 Mg PO DAILY Wellbutrin (Bupropion Hcl) 100 Mg Tablet 200 Mg PO DAILY Xeljanz (Tofacitinib Citrate) 5 Mg Tablet 5 Mg PO BID Ibuprofen 200 Mg Tablet 400 Mg PO PRN TID PRN Metoprolol Succinate ( Xl ) (Metoprolol Succinate) 25 Mg Tab.er.24h 2 Tab PO DAILY Folic Acid 1 Mg Tablet 1 Tab PO DAILY Sertraline Hcl 50 Mg Tablet 50 Mg PO DAILY Esomeprazole Capsule (Esomeprazole Strontium) 40 Mg Capsule.dr 40 Mg PO DAILYAC [place] 10-325 Tablet (Acetaminophen/Hydrocodone Bitart) 1 Each Tablet 1-2 Tab PO Q4-6HRS Methotrexate (Methotrexate Sodium) 2.5 Mg Tablet 7 Tab PO WEEKLY Vitals/I & O Vital Sign - Last 24 Hours 09/26/20 09/26/20 09/26/20 09/26/20 10:29 11:03 11:45 14:46 Temp 98.3 98.2 98.3 98.2 Pulse 92 81 Resp 16 18 16 18 B/P (MAP) 156/85 (108) 145/61 (89) Pulse Ox 94 95 O2 Delivery Room Air Room Air Room Air Room Air 09/26/20 09/26/20 09/26/20 09/27/20 19:00 19:45 23:00 03:00 Temp 100.5 99.1 99.2 100.5 99.1 99.2 Pulse 80 82 77 Resp 20 24 20 B/P (MAP) 154/58 (90) 170/70 (103) 151/56 (87) Pulse Ox 93 95 97 O2 Delivery Room Air Room Air Nasal Cannula Nasal Cannula O2 Flow Rate 2.0 2.0 09/27/20 09/27/20 09/27/20 07:00 07:49 08:00 Temp 98.9 98.9 Pulse 72 72 Resp 20 B/P (MAP) 163/61 (95) 163/61 Pulse Ox 96 O2 Delivery Nasal Cannula Room Air Intake and Output 09/26/20 09/26/20 09/27/20 15:00 23:00 07:00 Intake Total 3000 ml Balance 3000 ml Justicifation of Admission Dx: Justifications for Admission: Justification of Admission Dx: Yes Comments: Hemodynamic instability Anemia requiring transfusion LYNDA MILIAN MD Sep 27, 2020 10:10
--- NOTE | 2020-09-27 10:18 | NUR ---
Pt's daughter Alivia in room, asking for carpet floor layer apprentice. Upon entering room, she again asked for the carpet floor layer apprentice. She was informed the Charge Nurse is the primary person to speak with at this time. She then asks "where's Lavinia?". Pt's daugher informed that SULY Kate nursing cloth bleaching supervisor is not on this floor at all times and her whereabouts are unknown at this time. Daughter also asking for a pt. advocate. Daughter informed the pt advocate is not available on weekends and the Charge Nurse is the primary person to assist with questions and concerns. Pt's daughter now asking why is pt receiving a blood transfusion. Daughter reminded the need for a blood transfusion was discussed in detail prior to her signing consents for a blood transfusion. Daughter's response was "no you didn't". Daughter asking again for medical records from when pt was checked in. In the process of reeducating her on medical records policy that was explained earlier, she did not allow this RN to finish the reeducation. She walked away and stated she wants the pt advocate. SULY Kate nursing cloth bleaching supervisor notified of situation and stated she would be in to speak with pt's daughter.
--- NOTE | 2020-09-27 10:38 | NUR ---
Patients daughter Alivia came to desk asking for wipes to clean the room, states the aides changed her mother and cross contaminated the entire room and that she needs to clean it. Advised we can do it, daughter stated no. Patients daughter also advised to keep mask on, has been taking it off when staff leaves the room.
--- NOTE | 2020-09-27 13:30 | NUR ---
Pt's daughter Alivia returned to pt's room. Daughter very rude to nurses during verification of blood. Daughter upset stating nobody has come to the room today to discuss her meds. Daughter stated she provided ER with current printed med list, no med list seen in the chart. Pt's daughter stating pt is currently in pain, primary RN Nabil stated pt has not complained of pain today. Verbal med list obtained from pt's daughter.
[2020-09-27] MEDS: ACETAMINOPHEN 325 MG TABLET. PO PRN (14:04)
--- NOTE | 2020-09-27 14:41 | NUR ---
Patient temp was 99.0, transfusion initiated, after 15 min VS rechecked and patients temp 101.7. Stopped transfusion, reaction protocol initiated. lab orders placed. Daughter states she wants her transferred to ICU or somewhere else. Infrastructure Project Manager Lavinia notified. Provider paged orders received to stop transfusion and initiate protocol.
--- NOTE | 2020-09-27 16:22 | NUR ---
Assumed care of patient at this time.
[2020-09-27] MEDS ORDERED: NORMAL SALINE IV ONE (16:30)
[2020-09-27] MEDS: IV NORMAL SALINE 1000ML BAG 1,000 ML IV SCH ×2 (16:45→18:41)
[2020-09-27] MEDS ORDERED: IRON SUCROSE COMPLEX 500 MG in IV NORMAL SALINE 250ML 250 ML IV ONE (17:00)
[2020-09-27 17:19] LABS: UR POTASSIUM 31.7 mmol/L (Not Estab.)
--- NOTE | 2020-09-27 17:49 | RAD ---
AP chest. HISTORY: Short of breath AP view was taken of the chest. Heart is upper normal in size. There is no pleural effusion. There ar e mild hazy infiltrates. A recent prior study is not available for comparison. There is a hiatus amy ia behind the heart. IMPRESSION: 1. Mild hazy infiltrates. 2. Hiatus hernia. Electronically signed by: Benito Mayes MD (09/27/2020 4:58 PM) [facility]
[2020-09-27] MEDS: LACTOBACILLUS RHAMNOSUS GG 1 CAPSULE. PO SCH (22:29)
[2020-09-28] VITALS (11 sets, daily range): BP systolic 150–188; BP diastolic 52–76
[2020-09-28] MEDS: cefTRIAXone IV Push 1 GM VIAL. IVP SCH ×2 (00:36→20:57)
--- NOTE | 2020-09-28 02:12 | NUR ---
Daughter upset about the patient being transferred to [address] [place] [id number] related to her being under investigation for COVID. Daughter refuses patient transfer to [address] [place] [address] and states she would rather take her mother home to . RN explained to daughter for the safety of patient and health care workers that it is hospital policy that until COVID is ruled out, patient will need to be placed on COVID unit. Daughter still insist that she would rather take her home AMA than for her to be placed on [address] [place] [address], stating her mother's sister on the 6th floor 4 years ago. RN had discussion with daughter about what is best for the patient. Explained to daughter that if she decides to take the patient home AMA, the patient would not receive the treatment she needs including around the clock nursing care, IV antibiotics, MD services, lab work and any other necessary tests she would need to improve her health status. Daughter still very adamant about patient not going to the 6 floor COVID unit and plans to leave AMA after patient's iron infusion is complete. RN also explained to daughter that insurance may not pay for hospital stay if patient leaves AMA, daughter states she has already checked with insurance carrier and she is aware she will be responsible for a portion of the hospital stay. Nursing dairy farm supervisor notified of daughter's intent to leave AMA after iron transfusion is complete. Hospital fleet administrator notified by nursing dairy farm supervisor. After nursing dairy farm supervisor spoke with hospital fleet administrator, RN received call from nursing dairy farm supervisor. Per hospital fleet administrator, the patient may be transferred to [address] [place] [address] as an alternative to [address] [place] [address]. The daughter may stay with her mother tonight only and she must leave by 0700 in the morning. The daughter must also stay in the room and not be out and about in the hallway and after she leaves in the morning at 0700, per hospital policy she will not be able to visit her mother on [address] [place] [address] as this unit is a mixed unit with COVID patients and non COVID patients. RN had discussion with daughter about an alternative to south, explained to daughter she would be allowed to stay tonight only and after she leaves at 0700 in the morning she would not be able to visit this unit. Daughter initially had reservations about her mother going to a unit that has some COVID patients and wanted to know if her mother would be in isolation. RN explained to daughter that all rooms are private and her mother would be isolated from other COVID patients to avoid cross contamination. Daughter finally agreed to mother being transferred to [address] [place] [address]. Daughter also stated that she did not want to take her mother home in the middle of the night but would if she was going to transferred to the 6th floor. Daughter decided not to stay the rest of the night with patient, stating her back was bothering her and she would prefer to go home and get some rest. Daughter left hospital at 0200. RN obtained copy of DPOA for health care decisions and placed on chart. COVID and flu swab obtained prior to patient being transferred.
--- NOTE | 2020-09-28 02:40 | NUR ---
Report called to Edward TUBBS
[2020-09-28] MEDS: traMADol 50 MG TABLET PO PRN ×2 (02:58→08:48)
[2020-09-28 06:02] LABS: INFLUENZA A PATIENT NEGATIVE (NEGATIVE)
[2020-09-28 06:03] LABS: INFLUENZA B PATIENT POSITIVE (NEGATIVE)
[2020-09-28] MEDS: INSULIN LISPRO 300 UNITS/3 ML VIAL. SQ SCH ×3 (08:00→17:00)
[2020-09-28 08:37] LABS: BASO % 0 % (0-3); EOS # 0.1 x10^3/uL (0.0-0.7); EOS % 1 % (0-3); LYMPH # 0.3 x10^3/uL (1.0-4.8); LYMPH % 2 % (24-48); MEAN CORPUSCULAR HEMOGLOBIN 19 pg (25-35); MEAN CORPUSCULAR HGB CONC 30 g/dL (31-37); MEAN CORPUSCULAR VOLUME 65 fL (79-100); MONO # 1.4 x10^3/uL (0.0-1.1); MONO % 9 % (0-9); NEUT # 13.8 x10^3/uL (1.8-7.7); NEUT % 88 % (31-73); PLATELET COUNT 237 x10^3/uL (140-400); RED BLOOD COUNT 3.51 x10^6/uL (3.50-5.40); RED CELL DISTRIBUTION WIDTH 19.5 % (11.5-14.5); WHITE BLOOD COUNT 15.7 x10^3/uL (4.0-11.0)
[2020-09-28] MEDS: TAMSULOSIN 0.4 MG CAP.ER.24H. PO SCH (08:47)
[2020-09-28] MEDS: LACTOBACILLUS RHAMNOSUS GG 1 CAPSULE. PO SCH ×2 (08:47→20:56)
[2020-09-28] MEDS: OSELTAMIVIR 30 MG CAPSULE PO SCH ×2 (08:48→20:56)
[2020-09-28] MEDS: PANTOPRAZOLE 40 MG TABLET.DR. PO SCH (08:49)
[2020-09-28] MEDS: FOLIC ACID 1 MG TABLET. PO SCH (08:49)
[2020-09-28] MEDS: METOPROLOL SUCC 24HR ER 25 MG TAB.ER.24H. PO SCH (08:49)
[2020-09-28] MEDS: SERTRALINE 50 MG TABLET. PO SCH (08:49)
[2020-09-28] MEDS: buPROPion 100 MG TABLET. PO SCH (08:50)
[2020-09-28] MEDS: HEPARIN for SUB-Q USE 5,000 UNIT/ML VIAL. SQ SCH ×2 (08:51→20:57)
[2020-09-28 09:02] LABS: HEMATOCRIT 22.7 % (36.0-47.0); HEMOGLOBIN 6.7 g/dL (12.0-15.5)
[2020-09-28] MEDS ORDERED: ACETAMINOPHEN 325 MG TABLET. PO PRN (09:45)
[2020-09-28] MEDS ORDERED: diphenhydrAMINE HCL 25 MG CAPSULE PO PRN (09:45)
--- NOTE | 2020-09-28 11:26 | PDOC ---
[facility] PROGRESS NOTE Date of Service DOS: DATE: 09/28/20 TIME: 11:19 Chief Complaint Chief Complaint Acute renal failure secondary to prerenal azotemia most likely Severe dehydration Leukocytosis secondary to urinary tract infection Urinary tract infection, follow cultures Microcytic anemia Hypokalemia Hyperglycemia secondary to diabetes currently of no clinical significance Failure to thrive Plan We will send urine electrolytes and urine creatinine Replace hypokalemia IV fluid resuscitation had to be stomped secondary to reports of dyspnea in the middle of the night. Urinary output has been marginal as per nursing staff We will give 1 unit of PRBCs and administer 40 mg of Lasix IV push prior to minimize the risk of transfusion related fluid overload Repeat labs in the a.m. Physical therapy evaluation Follow cultures Continue with broad-spectrum antibiotics empirically with ceftriaxone DVT prophylaxis with heparin Greater than 45 minutes spent in care of the patient in [id number] contact counseling coordination of care. Discussed with RN at bedside History of Present Illness History of Present Illness History of Present Illness Patient is an 85-year-old female with past medical history of diabetes type 2 essential hypertension anxiety and arthritis who was in her usual state of health until approximately 24 hours prior to her admission. Apparently the patient lives by herself and over the course of the last week more or less the patient has been more fatigued and unable to care for herself. She certainly looks quite dehydrated during my encounter and apparently was diagnosed with a urinary tract infection. She has not had proper oral intake most likely secondary to her advancing age and unable to take care of the activities of daily living. The patient does not refer any pain at the time of my evaluation she denies any fever no chills no back pain no CVA tenderness no nausea vomiting or right diarrhea was reported. The patient was evaluated in the emergency department and found to have an acute renal failure and evidence of a urinary tract infection reason why we were asked to admit the patient for further treatment. The patient at the time of my note is laying in bed in no acute distress she is able to drink water and I have encouraged to increase her level of activity as tolerated. Plan of care has been explained detail and all of her concerns were addressed to the best of my abilities. Patient is not a very good historian due to his acuity at the moment. We will reassess in the a.m. Most likely the patient will have to transition to an institution prior to returning to her home if she ever returns given the frailty that she came to the emergency department with 09/27: Patient much better compared to yesterday. Her mentation has definitely improved no complaints during my visit denies any headache blurred vision no nausea no vomiting no diarrhea hemoglobin reported earlier noted. Transfusion of 1 unit of packed red blood cell has been ordered. We will do iron studies prior to the infusion 09/28 - discussed with RN - RN spoke with family regarding blood transfusion - awaiting COVID test results - discussed plan of care with pt - pt evaluated at bedside Vitals/I&O Vitals/I&O: Vital Signs Date Time Temp Pulse Resp B/P (MAP) Pulse Ox O2 Delivery O2 Flow Rate FiO2 09/28/20 08:49 81 188/63 09/28/20 08:00 Room Air 09/28/20 07:00 98.6 22 95 2.0 98.6 I & O 09/27/20 09/27/20 09/28/20 15:00 23:00 07:00 Intake Total 50 ml 120 ml Balance 50 ml 120 ml Physical Exam General: Alert, Oriented X3 Heart: Regular rate Lungs: Clear Abdomen: Soft, No masses Extremities: No clubbing, No cyanosis Skin: No breakdown Labs Labs: Laboratory Tests Test 09/27/20 11:27 09/27/20 16:09 09/27/20 20:50 09/28/20 05:10 Glucose (Fingerstick) 138 mg/dL (70-99) 136 mg/dL (70-99) 151 mg/dL (70-99) Influenza Type A Antigen Negative (NEGATIVE) Influenza Type B Antigen Positive (NEGATIVE) Test 09/28/20 07:33 09/28/20 08:00 Glucose (Fingerstick) 122 mg/dL (70-99) White Blood Count 15.7 x10^3/uL (4.0-11.0) Red Blood Count 3.51 x10^6/uL (3.50-5.40) Hemoglobin 6.7 g/dL (12.0-15.5) Hematocrit 22.7 % (36.0-47.0) Mean Corpuscular Volume 65 fL (79-100) Mean Corpuscular Hemoglobin 19 pg (25-35) Mean Corpuscular Hemoglobin Concent 30 g/dL (31-37) Red Cell Distribution Width 19.5 % (11.5-14.5) Platelet Count 237 x10^3/uL (140-400) Neutrophils (%) (Auto) 88 % (31-73) Lymphocytes (%) (Auto) 2 % (24-48) Monocytes (%) (Auto) 9 % (0-9) Eosinophils (%) (Auto) 1 % (0-3) Basophils (%) (Auto) 0 % (0-3) Neutrophils # (Auto) 13.8 x10^3/uL (1.8-7.7) Lymphocytes # (Auto) 0.3 x10^3/uL (1.0-4.8) Monocytes # (Auto) 1.4 x10^3/uL (0.0-1.1) Eosinophils # (Auto) 0.1 x10^3/uL (0.0-0.7) Basophils # (Auto) 0.0 x10^3/uL (0.0-0.2) Review of Systems Review of Systems: pt denies any GI complaints pt reports improved mentation Assessment and Plan Assessmemt and Plan Problems Medical Problems: (1) KENNA (acute kidney injury) Status: Acute (2) Dehydration Status: Acute (3) Urinary tract infection Status: Acute 09/28 - continue rocephin - transfer 1 unit of blood - await COVID test results - begin tamiflu - repeat labs - cardiac monitoring Comment Review of Relevant I have reviewed the following items austin (where applicable) has been applied. Medications: Current Medications Medications (Trade) Dose Ordered Sig/Tracy Route PRN Reason Start Time Stop Time Status Last Admin Dose Admin Lactobacillus Rhamnosus (Culturelle) 1 cap BID PO 09/27/20 21:00 09/28/20 08:47 Iron Sucrose 500 mg/Sodium Chloride 275 ml @ 78.571 mls/ hr 1X ONCE IV 09/27/20 17:00 09/27/20 20:29 DC 09/27/20 20:16 Sodium Chloride 1,000 ml @ 555 mls/hr Q1H49M IV 09/27/20 16:45 09/27/20 19:59 DC 09/27/20 18:41 Oseltamivir Phosphate (Tamiflu) 30 mg BID PO 09/28/20 09:00 10/03/20 08:59 09/28/20 08:48 Justifications for Admission Other Justification CASTLE,NIAL K III DO Sep 28, 2020 11:26
--- NOTE | 2020-09-28 16:00 | NUR ---
SS following for discharge planning. SS reviewed pt chart and discussed with pt RN. Pt is from home and is currently requiring oxygen via nasal canula. COVID19 positive. Flu positive. Pt on IV Rocephin. PT/OT recommending fpc unit. Pt had blood transfusion today. ID consulted. SS will continue to follow for discharge planning.
[2020-09-28 16:31] LABS: HEMATOCRIT 26.6 % (36.0-47.0)
[2020-09-28] MEDS: ACETAMINOPHEN 325 MG TABLET. PO PRN (20:56)
[2020-09-29] MEDS: MORPHINE SULFATE 2 MG/ML VIAL. IV PRN ×2 (00:01→19:52)
[2020-09-29 03:59] VITALS: BP 171/66
[2020-09-29] MEDS ORDERED: PHENOL ORAL SPRAY 177ML BOTTLE. PO PRN (06:15)
[2020-09-29 07:00] VITALS: BP 165/72
[2020-09-29] MEDS: INSULIN LISPRO 300 UNITS/3 ML VIAL. SQ SCH ×3 (08:00→17:00)
[2020-09-29] MEDS: SERTRALINE 50 MG TABLET. PO SCH (08:15)
[2020-09-29] MEDS: FOLIC ACID 1 MG TABLET. PO SCH (08:15)
[2020-09-29] MEDS: METOPROLOL SUCC 24HR ER 25 MG TAB.ER.24H. PO SCH (08:15)
[2020-09-29] MEDS: LACTOBACILLUS RHAMNOSUS GG 1 CAPSULE. PO SCH ×2 (08:15→19:51)
[2020-09-29] MEDS: buPROPion 100 MG TABLET. PO SCH (08:15)
[2020-09-29] MEDS: TAMSULOSIN 0.4 MG CAP.ER.24H. PO SCH (08:16)
[2020-09-29] MEDS: PANTOPRAZOLE 40 MG TABLET.DR. PO SCH (08:16)
[2020-09-29] MEDS: OSELTAMIVIR 30 MG CAPSULE PO SCH ×2 (08:16→19:51)
[2020-09-29] MEDS: HEPARIN for SUB-Q USE 5,000 UNIT/ML VIAL. SQ SCH ×2 (08:20→19:52)
[2020-09-29] MEDS: traMADol 50 MG TABLET PO PRN ×2 (09:41→23:39)
--- NOTE | 2020-09-29 10:43 | PDOC ---
[facility] PROGRESS NOTE Date of Service DOS: DATE: 09/29/20 TIME: 10:38 Chief Complaint Chief Complaint COVID 19 Influenza B Acute renal failure secondary to prerenal azotemia most likely Severe dehydration Leukocytosis secondary to urinary tract infection Urinary tract infection, follow cultures Microcytic anemia Hypokalemia Hyperglycemia secondary to diabetes currently of no clinical significance Failure to thrive History of Present Illness History of Present Illness History of Present Illness Patient is an 85-year-old female with past medical history of diabetes type 2 essential hypertension anxiety and arthritis who was in her usual state of health until approximately 24 hours prior to her admission. Apparently the patient lives by herself and over the course of the last week more or less the patient has been more fatigued and unable to care for herself. She certainly looks quite dehydrated during my encounter and apparently was diagnosed with a urinary tract infection. She has not had proper oral intake most likely secondary to her advancing age and unable to take care of the activities of daily living. The patient does not refer any pain at the time of my evaluation she denies any fever no chills no back pain no CVA tenderness no nausea vomiting or right diarrhea was reported. The patient was evaluated in the emergency department and found to have an acute renal failure and evidence of a urinary tract infection reason why we were asked to admit the patient for further treatment. The patient at the time of my note is laying in bed in no acute distress she is able to drink water and I have encouraged to increase her level of activity as tolerated. Plan of care has been explained detail and all of her concerns were addressed to the best of my abilities. Patient is not a very good historian due to his acuity at the moment. We will reassess in the a.m. Most likely the patient will have to transition to an institution prior to returning to her home if she ever returns given the frailty that she came to the emergency department with 09/27: Patient much better compared to yesterday. Her mentation has definitely improved no complaints during my visit denies any headache blurred vision no nausea no vomiting no diarrhea hemoglobin reported earlier noted. Transfusion of 1 unit of packed red blood cell has been ordered. We will do iron studies prior to the infusion 09/28 - discussed with RN - RN spoke with family regarding blood transfusion - awaiting COVID test results - discussed plan of care with pt - pt evaluated at bedside 09/29 -Patient seen and evaluated at bedside -Dennis RN & clinical case manager -COVID positive -Chart reviewed Vitals/I&O Vitals/I&O: Vital Signs Date Time Temp Pulse Resp B/P (MAP) Pulse Ox O2 Delivery O2 Flow Rate FiO2 09/29/20 09:41 Nasal Cannula 2.0 09/29/20 08:15 68 165/72 09/29/20 07:00 97.4 22 97 97.4 I & O 09/28/20 09/28/20 09/29/20 15:00 23:00 07:00 Intake Total 0 ml 100 ml Balance 0 ml 100 ml Physical Exam General: Alert, Oriented X3 Heart: Regular rate Lungs: Clear Abdomen: Soft, No masses Extremities: No clubbing, No cyanosis Skin: No breakdown Labs Labs: Laboratory Tests Test 09/28/20 11:55 09/28/20 16:25 09/28/20 16:49 09/28/20 21:10 Glucose (Fingerstick) 127 mg/dL (70-99) 110 mg/dL (70-99) 123 mg/dL (70-99) Hemoglobin 8.0 g/dL (12.0-15.5) Hematocrit 26.6 % (36.0-47.0) Mean Corpuscular Hemoglobin Concent 30 g/dL (31-37) Test 09/29/20 07:45 Glucose (Fingerstick) 127 mg/dL (70-99) Review of Systems Review of Systems: Denies shortness of breath. Denies NVD. Assessment and Plan Assessmemt and Plan Problems Medical Problems: (1) KENNA (acute kidney injury) Status: Acute (2) Dehydration Status: Acute (3) Urinary tract infection Status: Acute Covid-19 Influenza B Acute renal failure secondary to prerenal azotemia most likely Severe dehydration Leukocytosis secondary to urinary tract infection Urinary tract infection, follow cultures Microcytic anemia Hypokalemia Hyperglycemia secondary to diabetes currently of no clinical significance Failure to thrive Plan 1 Continue IV Rocephin 2 COVID protocol 3 Trend labs 4 Continue Tamiflu 5 Home meds 6 DVT prophylaxis 7 Full code 8 Cardiac monitoring Comment Review of Relevant I have reviewed the following items [place] (where applicable) has been applied. Medications: Current Medications Medications (Trade) Dose Ordered Sig/Tracy Route PRN Reason Start Time Stop Time Status Last Admin Dose Admin Phenol (Chloraseptic) 1 spray PRN Q2HR PRN PO SORE THROAT 09/29/20 06:15 09/29/20 08:13 Justifications for Admission Other Justification JUDITH GARZA III DO Sep 29, 2020 10:43
--- NOTE | 2020-09-29 10:46 | NUR ---
SS following up with discharge planning. SS reviewed pt chart and discussed with pt RN. Pt is currently requiring oxygen via nasal canula at two liters. COVID19 positive. Flu Positive. Pt on IV Rocephin. ID consulted. PT/OT recommended alf unit. SS contacted pt's daughter and discussed discharge planning and alf unit. Pt's daughter reported that she would take the recommendations into consideration. SS will continue to follow for discharge planning.
--- NOTE | 2020-09-29 11:17 | CONS ---
DATE OF CONSULTATION: 09/29/2020 REFERRING PHYSICIAN: Dr. Scott. REASON FOR CONSULTATION: COVID-19 infection. HISTORY OF PRESENT ILLNESS: An 85-year-old female with past medical history of diabetes mellitus type 2, hypertension, anxiety, arthritis, presented to the ER after feeling more fatigued, unable to take care of herself at home. She was recently diagnosed with urinary tract infection. The patient's p.o. intake had been poor. She denied any pain, fevers, chills, nausea, vomiting, diarrhea or abdominal pain. She was found to have pyuria, acute renal failure, leukocytosis, severe dehydration, metabolic acidosis, hypokalemia, hyperglycemia. COVID-19 was sent. Influenza screen was sent. COVID-19 returned positive. Influenza B returned positive. The patient was started on Tamiflu, ceftriaxone, currently is on 2 liters of O2 by nasal cannula. ID consultation has been requested for antibiotic management. The patient today feels better. Cough is improving. Denies any fevers, headache, sore throat, nausea, vomiting, abdominal pain, symptoms, diarrhea. She is feeling stronger. Her p.o. intake has improved. She still has some sore throat for which she is requesting for some medication. PAST MEDICAL HISTORY: Hypertension, hyperlipidemia, COPD, diabetes, history of nephrolithiasis. PAST SURGICAL HISTORY: Total hip replacement, total knee replacement. FAMILY HISTORY: Noncontributory. SOCIAL HISTORY: Denies smoking, ETOH, or illicit drug use. Lives alone, uses a walker. CURRENT MEDICATIONS: Ceftriaxone and Tamiflu. Other medications reviewed in medication list. ALLERGIES: No known drug allergies. REVIEW OF SYSTEMS: Negative except for above in HPI. PHYSICAL EXAMINATION: VITAL SIGNS: Temperature 97.4, pulse rate 68, respiratory rate 22, blood pressure 165/72, oxygen saturation 97% on 2 liters by nasal cannula. GENERAL: Alert, oriented x 3 female, appears stronger, in no acute distress, eating breakfast. HEENT: Normocephalic, atraumatic, anicteric. No thrush. Oral mucosa moist. NECK: Supple, no JVD. LUNGS: Clear bilaterally. No wheezing. No accessory muscle use. HEART: S1, S2. No gallops or murmurs. ABDOMEN: Soft, nontender, nondistended, no rebound or guarding. EXTREMITIES: No edema, no cyanosis. DERMATOLOGIC: Warm and dry. No generalized rash. NEUROLOGIC: Alert and oriented x 3, grossly nonfocal. PSYCHIATRIC: Cooperative, appropriate mood and affect. BACK: Reveals normal curvature. No CVA tenderness. LABORATORY DATA: WBC 15.7, hemoglobin 6.7, repeat is 8.0, platelets 237. Sodium 136, potassium 3.3, chloride 103, bicarbonate 19, BUN 45, creatinine 2.3, glucose 116. MICROBIOLOGY: Blood culture negative. Urine culture not available. DIAGNOSTICS: Chest x-ray, mild hazy infiltrates, hiatal hernia. IMPRESSION: 1. COVID-19 pneumonia, improving clinically per team. 2. Influenza B on Tamiflu. 3. Acute renal failure. 4. Leukocytosis. 5. Urinary tract infection. Urine cultures not done. 6. Anemia, status post blood transfusion. 7. Diabetes mellitus 2. 8. Fatigue, resolving. 9. Hyponatremia and metabolic acidosis, improving. 10. History of nephrolithiasis. RECOMMENDATIONS: 1. Continue supportive care. 2. Start Dexamethasone for now. 3. Continue Tamiflu renal dosing. 4. Repeat UA and urine cultures. 5. Continue ceftriaxone. 6. Obtain renal ultrasound. 7. Monitor labs and cultures. 8. If respiratory status worsens, the patient may be a candidate for remdesivir. 9. Maintain aspiration precaution. Discussed with nursing staff. Thank you for allowing me to participate in this patient's care. If you have any questions, do not hesitate to contact me. DENZEL LARA MD DR: JEY/matthew JOB#: [id number] / [id number] KIMI
[2020-09-29 11:45] VITALS: BP 174/62
[2020-09-29] MEDS: ACETAMINOPHEN 325 MG TABLET. PO PRN (12:52)
[2020-09-29] MEDS: NYSTATIN 100,000 UNITS/ML 5 ML ORAL.SUSP. SWSW SCH ×2 (12:52→19:51)
[2020-09-29] MEDS: DEXAMETHASONE 4 MG TABLET PO SCH (12:53)
--- NOTE | 2020-09-29 13:23 | RAD ---
Bilateral renal ultrasound without comparison for urinary tract infection, nephrolithiasis. TECHNIQUE AND FINDINGS: Real-time grayscale and color Doppler evaluation of the kidneys and urinary b ladder is performed. The left kidney is normal measuring 12.1 x 5.7 x 6.3 cm. No hydronephrosis. The right kidney demonstrates irregular cortical thinning suggestive prior renal insult. No hydronephrosi s. No renal masses. 3.8 cm exophytic benign renal cysts for which no additional follow-up is required . The urinary bladder is fluid distended and grossly unremarkable. IMPRESSION: 1. Irregular cortical thinning of the right kidney with normal appearance of the left, suggesting june or unilateral renal injury. No hydronephrosis. 2. Otherwise unremarkable renal ultrasound. Electronically signed by: Kvng Short MD (09/29/2020 1:20 PM) [id number]
[2020-09-29 14:56] VITALS: BP 136/63
[2020-09-29 19:09] VITALS: BP 153/63
[2020-09-29] MEDS: cefTRIAXone IV Push 1 GM VIAL. IVP SCH (19:53)
[2020-09-29 22:46] VITALS: BP 180/73
[2020-09-30 03:02] VITALS: BP 174/88
[2020-09-30] MEDS: traMADol 50 MG TABLET PO PRN ×2 (06:37→22:00)
[2020-09-30 07:00] VITALS: BP 184/82
--- NOTE | 2020-09-30 07:47 | PDOC ---
Infectious Disease Note Subjective: Subjective Patient without complaints Feels much better Down to O2 1 L by nasal cannula Vital Signs: Vital Signs Vital Signs Date Time Temp Pulse Resp B/P (MAP) Pulse Ox O2 Delivery O2 Flow Rate FiO2 09/30/20 06:37 100 Nasal Cannula 1.0 09/30/20 03:02 98.2 78 16 174/88 (116) 98.2 Physical Exam: PHYSICAL EXAM GENERAL: Alert, oriented x 3 female, appears comfortable HEENT: Normocephalic, atraumatic, anicteric. No thrush. Oral mucosa moist. NECK: Supple, no JVD. LUNGS: Clear bilaterally. No wheezing. No accessory muscle use. HEART: S1, S2. No gallops or murmurs. ABDOMEN: Soft, nontender, nondistended, no rebound or guarding. EXTREMITIES: No edema, no cyanosis. DERMATOLOGIC: Warm and dry. No generalized rash. NEUROLOGIC: Alert and oriented x 3, grossly nonfocal. PSYCHIATRIC: Cooperative, appropriate mood and affect. BACK: Reveals normal curvature. No CVA tenderness. Medications: Inpatient Meds: Current Medications Medications (Trade) Dose Ordered Sig/Tracy Start Time Stop Time Status Last Admin Dose Admin Acetaminophen (Tylenol) 650 mg 1X PRN PRN 09/28/20 09:45 09/28/20 23:00 DC 09/28/20 11:23 650 MG Bupropion HCl (Wellbutrin) 200 mg DAILY 09/26/20 09:00 09/29/20 08:15 200 MG Ceftriaxone Sodium (Rocephin) 1 gm Q24H 09/26/20 21:00 09/29/20 19:53 1 GM Dexamethasone (Decadron) 6 mg [id number] 09/29/20 12:00 10/08/20 08:01 09/29/20 12:53 6 MG Dextrose (Dextrose 50%-Water Syringe) 12.5 gm PRN Q15MIN PRN 09/26/20 00:30 Diphenhydramine HCl (Benadryl) 25 mg PRN 1X PRN 09/28/20 09:45 09/28/20 23:00 DC 09/28/20 11:23 25 MG Folic Acid (Folic Acid) 1 mg DAILY 09/26/20 09:00 09/29/20 08:15 1 MG Furosemide (Lasix) 40 mg 1X ONCE 09/27/20 08:15 09/27/20 08:16 DC 09/27/20 08:19 40 MG Heparin Sodium (Porcine) (Heparin Sodium) 5,000 unit Q12H 09/26/20 21:00 09/29/20 19:52 5,000 UNIT Insulin Human Lispro (HumaLOG) 0-7 UNITS TIDWMEALS 09/26/20 08:00 Iron Sucrose 500 mg/Sodium Chloride 275 ml @ 78.571 mls/ hr 1X ONCE 09/27/20 17:00 09/27/20 20:29 DC 09/27/20 20:16 78.571 MLS/HR Lactobacillus Rhamnosus (Culturelle) 1 cap BID 09/27/20 21:00 09/29/20 19:51 1 CAP Metoprolol Succinate (Toprol Xl) 50 mg DAILY 09/26/20 09:00 09/29/20 08:15 50 MG Morphine Sulfate (Morphine Sulfate) 2 mg PRN Q4HRS PRN 09/26/20 00:30 09/29/20 19:52 2 MG Nystatin (Nystatin Oral Susp) 5 ml BID 09/29/20 11:45 09/29/20 19:51 5 ML Ondansetron HCl (Zofran) 4 mg PRN Q4HRS PRN 09/26/20 00:30 Oseltamivir Phosphate (Tamiflu) 30 mg BID 09/28/20 09:00 10/03/20 08:59 09/29/20 19:51 30 MG Pantoprazole Sodium (Protonix) 40 mg DAILYAC 09/26/20 07:30 09/29/20 08:16 40 MG Phenol (Chloraseptic) 1 spray PRN Q2HR PRN 09/29/20 06:15 09/29/20 08:13 1 SPRAY Potassium Chloride (Klor-Con) 40 meq 1X ONCE 09/27/20 08:15 09/27/20 08:16 DC 09/27/20 08:19 40 MEQ Sertraline HCl (Zoloft) 50 mg DAILY 09/26/20 09:00 09/29/20 08:15 50 MG Sodium Chloride 1,000 ml @ 555 mls/hr Q1H49M 09/27/20 16:45 09/27/20 19:59 DC 09/27/20 18:41 555 MLS/HR Sodium Chloride/ Sodium Chloride 1,800 ml @ 1,000 mls/hr 1X ONCE 09/27/20 16:30 09/27/20 16:35 DC Tamsulosin HCl (Flomax) 0.4 mg DAILY 09/26/20 09:00 09/29/20 08:16 0.4 MG Tramadol HCl (Ultram) 50 mg PRN Q6HRS PRN 09/26/20 00:30 09/30/20 06:37 50 MG Labs: Lab Laboratory Tests Test 09/29/20 11:15 09/29/20 15:13 09/29/20 20:18 Glucose (Fingerstick) 130 mg/dL (70-99) 175 mg/dL (70-99) 228 mg/dL (70-99) Objective: Assessment: 1. COVID-19 pneumonia, improving 2. Influenza B on Tamiflu. 3. Acute renal failure. 4. Leukocytosis. 5. Urinary tract infection. Urine cultures not done. 6. Anemia, status post blood transfusion. 7. Diabetes mellitus 2. 8. Fatigue, resolving. 9. Hyponatremia and metabolic acidosis, improving. 10. History of nephrolithiasis. Plan: Plan of Care 1. Continue supportive care. 2. Continue dexamethasone 3. Continue Tamiflu renal dosing. 4. Repeat UA and urine cultures. 5. Continue ceftriaxone. 6. Monitor labs and cultures. 7. If respiratory status worsens, the patient may be a candidate for remdesivir. Discussed with nursing staff. DENZEL LARA MD Sep 30, 2020 07:47
[2020-09-30] MEDS: INSULIN LISPRO 300 UNITS/3 ML VIAL. SQ SCH ×3 (08:00→17:37)
--- NOTE | 2020-09-30 08:29 | PDOC ---
[employer] PROGRESS NOTE Date of Service DOS: DATE: 09/30/20 TIME: 08:22 Chief Complaint Chief Complaint COVID 19 Influenza B Acute renal failure secondary to prerenal azotemia most likely Severe dehydration Leukocytosis secondary to urinary tract infection Urinary tract infection, follow cultures Microcytic anemia Hypokalemia Hyperglycemia secondary to diabetes currently of no clinical significance Failure to thrive UTI History of Present Illness History of Present Illness History of Present Illness Patient is an 85-year-old female with past medical history of diabetes type 2 essential hypertension anxiety and arthritis who was in her usual state of health until approximately 24 hours prior to her admission. Apparently the patient lives by herself and over the course of the last week more or less the patient has been more fatigued and unable to care for herself. She certainly looks quite dehydrated during my encounter and apparently was diagnosed with a urinary tract infection. She has not had proper oral intake most likely secondary to her advancing age and unable to take care of the activities of daily living. The patient does not refer any pain at the time of my evaluation she denies any fever no chills no back pain no CVA tenderness no nausea vomiting or right diarrhea was reported. The patient was evaluated in the emergency department and found to have an acute renal failure and evidence of a urinary tract infection reason why we were asked to admit the patient for further treatment. The patient at the time of my note is laying in bed in no acute distress she is able to drink water and I have encouraged to increase her level of activity as tolerated. Plan of care has been explained detail and all of her concerns were addressed to the best of my abilities. Patient is not a very good historian due to his acuity at the moment. We will reassess in the a.m. Most likely the patient will have to transition to an institution prior to returning to her home if she ever returns given the frailty that she came to the emergency department with 09/27: Patient much better compared to yesterday. Her mentation has definitely improved no complaints during my visit denies any headache blurred vision no nausea no vomiting no diarrhea hemoglobin reported earlier noted. Transfusion of 1 unit of packed red blood cell has been ordered. We will do iron studies prior to the infusion 09/28 - discussed with RN - RN spoke with family regarding blood transfusion - awaiting COVID test results - discussed plan of care with pt - pt evaluated at bedside 09/29 -Patient seen and evaluated at bedside -Dennis RN & case maker -COVID positive -Chart reviewed 09/30/2020 - Pt seen and examined - Dennis RN - Chart reviewed - COVID positive Vitals/I&O Vitals/I&O: Vital Signs Date Time Temp Pulse Resp B/P (MAP) Pulse Ox O2 Delivery O2 Flow Rate FiO2 09/30/20 06:37 100 Nasal Cannula 1.0 09/30/20 03:02 98.2 78 16 174/88 (116) 98.2 I & O 09/29/20 09/29/20 09/30/20 14:59 22:59 06:59 Intake Total 480 ml 240 ml Balance 480 ml 240 ml Physical Exam Physical Exam: GENERAL: Alert, oriented x 3 female, appears comfortable HEENT: Normocephalic, atraumatic, anicteric. No thrush. Oral mucosa moist. NECK: Supple, no JVD. LUNGS: Clear bilaterally. No wheezing. No accessory muscle use. HEART: S1, S2. No gallops or murmurs. ABDOMEN: Soft, nontender, nondistended, no rebound or guarding. EXTREMITIES: No edema, no cyanosis. DERMATOLOGIC: Warm and dry. No generalized rash. NEUROLOGIC: Alert and oriented x 3, grossly nonfocal. PSYCHIATRIC: Cooperative, appropriate mood and affect. BACK: Reveals normal curvature. No CVA tenderness. General: Alert, Oriented X3 Heart: Regular rate Lungs: Clear Abdomen: Soft, No masses Extremities: No clubbing, No cyanosis Skin: No breakdown Labs Labs: Laboratory Tests Test 09/29/20 11:15 09/29/20 15:13 09/29/20 20:18 09/30/20 07:26 Glucose (Fingerstick) 130 mg/dL (70-99) 175 mg/dL (70-99) 228 mg/dL (70-99) 144 mg/dL (70-99) Review of Systems Review of Systems: Pt alert and oriented. Assessment and Plan Assessmemt and Plan Problems Medical Problems: (1) KENNA (acute kidney injury) Status: Acute (2) Dehydration Status: Acute (3) Urinary tract infection Status: Acute COVID 19 Influenza B Acute renal failure secondary to prerenal azotemia most likely Severe dehydration Leukocytosis secondary to urinary tract infection Urinary tract infection, follow cultures Microcytic anemia Hypokalemia Hyperglycemia secondary to diabetes currently of no clinical significance Failure to thrive UTI Plan: 1. Continue COVID protocol 2. Tamiflu usage 3. Trend labs 4. Home meds 5. Full code 6. DVT prophylaxis Comment Review of Relevant I have reviewed the following items [place] (where applicable) has been applied. Medications: Current Medications Medications (Trade) Dose Ordered Sig/Tracy Route PRN Reason Start Time Stop Time Status Last Admin Dose Admin Dexamethasone (Decadron) 6 mg DAILYWBKFT PO 09/29/20 12:00 10/08/20 08:01 09/29/20 12:53 Nystatin (Nystatin Oral Susp) 5 ml BID SWSW 09/29/20 11:45 09/29/20 19:51 Justifications for Admission Other Justification JUDITH GARZA III DO Sep 30, 2020 08:29
[2020-09-30] MEDS: buPROPion 100 MG TABLET. PO SCH (08:32)
[2020-09-30] MEDS: SERTRALINE 50 MG TABLET. PO SCH (08:32)
[2020-09-30] MEDS: LACTOBACILLUS RHAMNOSUS GG 1 CAPSULE. PO SCH ×2 (08:32→21:58)
[2020-09-30] MEDS: DEXAMETHASONE 4 MG TABLET PO SCH (08:33)
[2020-09-30] MEDS: OSELTAMIVIR 30 MG CAPSULE PO SCH ×2 (08:33→21:58)
[2020-09-30] MEDS: PANTOPRAZOLE 40 MG TABLET.DR. PO SCH (08:34)
[2020-09-30] MEDS: METOPROLOL SUCC 24HR ER 25 MG TAB.ER.24H. PO SCH (08:34)
[2020-09-30] MEDS: FOLIC ACID 1 MG TABLET. PO SCH (08:34)
[2020-09-30] MEDS: TAMSULOSIN 0.4 MG CAP.ER.24H. PO SCH (08:35)
[2020-09-30] MEDS: ACETAMINOPHEN 325 MG TABLET. PO PRN (08:35)
[2020-09-30] MEDS: NYSTATIN 100,000 UNITS/ML 5 ML ORAL.SUSP. SWSW SCH ×2 (08:35→21:59)
[2020-09-30] MEDS: HEPARIN for SUB-Q USE 5,000 UNIT/ML VIAL. SQ SCH ×2 (08:42→21:58)
[2020-09-30 11:00] VITALS: BP 163/68
[2020-09-30] MEDS: ALPRAZolam 0.5 MG TABLET PO PRN ×2 (12:52→21:58)
[2020-09-30 13:46] LABS: BILIRUBIN,URINE NEGATIVE (NEG); CLARITY,URINE CLEAR; COLOR,URINE YELLOW; NITRITE,URINE NEGATIVE (NEG); PH,URINE 6.5 (<5.0-8.0); PROTEIN,URINE NEGATIVE (NEG-TRACE); UROBILINOGEN,URINE 0.2 mg/dL (0.2 mg/dL)
[2020-09-30 13:57] LABS: HYALINE CASTS, URINE OCCASIONAL /HPF; RBC,URINE OCC /HPF (0-2)
[2020-09-30 13:58] LABS: BACTERIA,URINE MODERATE /HPF (0-FEW)
--- NOTE | 2020-09-30 14:01 | NUR ---
SS following up with discharge planning. SS reviewed pt chart and discussed with pt RN. Pt is currently requiring oxygen via nasal canula at one liter. COVID19 positive. Flu Positive. Pt on IV Rocephin. Urine sample collected today and being cultured. PT/OT recommended nursing home unit. SS contacted pt's daughter and discussed discharge planning and nursing home unit. Pt's daughter reported that pt has a lot of help at home and nursing home unit would not be necessary. Pt's daughter reported that they would like home healthcare at discharge with no preference in company. She reported that she does not think that they liked [facility] ([place]). SS will continue to follow for discharge planning.
[2020-09-30 14:18] LABS: ALBUMIN 2.3 g/dL (3.4-5.0); CALCIUM 8.6 mg/dL (8.5-10.1); CREATININE 1.4 mg/dL (0.6-1.0); GFR 35.7; PHOSPHORUS 3.3 mg/dL (2.6-4.7); POTASSIUM 3.5 mmol/L (3.5-5.1)
[2020-09-30 15:00] VITALS: BP 142/59
[2020-09-30 19:32] VITALS: BP 156/79
[2020-09-30] MEDS: cefTRIAXone IV Push 1 GM VIAL. IVP SCH (21:59)
[2020-09-30 22:12] VITALS: BP 170/73
[2020-10-01 02:25] VITALS: BP 191/84
[2020-10-01 07:00] VITALS: BP 160/70
[2020-10-01] MEDS: INSULIN LISPRO 300 UNITS/3 ML VIAL. SQ SCH ×3 (08:00→18:13)
--- NOTE | 2020-10-01 08:08 | PDOC ---
Infectious Disease Note Subjective: Subjective Patient without complaints except for arthritis flareup in both her hands Otherwise feels much better On room air Vital Signs: Vital Signs Vital Signs Date Time Temp Pulse Resp B/P (MAP) Pulse Ox O2 Delivery O2 Flow Rate FiO2 10/01/20 02:25 98.2 72 17 191/84 (119) 95 Room Air 98.2 09/30/20 15:00 1.0 Physical Exam: PHYSICAL EXAM GENERAL: Alert, oriented x 3 female, appears comfortable HEENT: Normocephalic, atraumatic, anicteric. No thrush. Oral mucosa moist. NECK: Supple, no JVD. LUNGS: Clear bilaterally. No wheezing. No accessory muscle use. HEART: S1, S2. No gallops or murmurs. ABDOMEN: Soft, nontender, nondistended, no rebound or guarding. EXTREMITIES: No edema, no cyanosis. DERMATOLOGIC: Warm and dry. No generalized rash. NEUROLOGIC: Alert and oriented x 3, grossly nonfocal. PSYCHIATRIC: Cooperative, appropriate mood and affect. BACK: Reveals normal curvature. No CVA tenderness. Medications: Inpatient Meds: Current Medications Medications (Trade) Dose Ordered Sig/Tracy Start Time Stop Time Status Last Admin Dose Admin Acetaminophen (Tylenol) 650 mg 1X PRN PRN 09/28/20 09:45 09/28/20 23:00 DC 09/28/20 11:23 650 MG Alprazolam (Xanax) 0.5 mg PRN BID PRN 09/30/20 10:00 09/30/20 21:58 0.5 MG Bupropion HCl (Wellbutrin) 200 mg DAILY 09/26/20 09:00 09/30/20 08:32 200 MG Ceftriaxone Sodium (Rocephin) 1 gm Q24H 09/26/20 21:00 09/30/20 21:59 1 GM Dexamethasone (Decadron) 6 mg DAILYWBKFT 09/29/20 12:00 10/08/20 08:01 09/30/20 08:33 6 MG Dextrose (Dextrose 50%-Water Syringe) 12.5 gm PRN Q15MIN PRN 09/26/20 00:30 Diphenhydramine HCl (Benadryl) 25 mg PRN 1X PRN 09/28/20 09:45 09/28/20 23:00 DC 09/28/20 11:23 25 MG Folic Acid (Folic Acid) 1 mg DAILY 09/26/20 09:00 09/30/20 08:34 1 MG Furosemide (Lasix) 40 mg 1X ONCE 09/27/20 08:15 09/27/20 08:16 DC 09/27/20 08:19 40 MG Heparin Sodium (Porcine) (Heparin Sodium) 5,000 unit Q12H 09/26/20 21:00 09/30/20 21:58 5,000 UNIT Insulin Human Lispro (HumaLOG) 0-7 UNITS TIDWMEALS 09/26/20 08:00 09/30/20 17:37 4 UNITS Iron Sucrose 500 mg/Sodium Chloride 275 ml @ 78.571 mls/ hr 1X ONCE 09/27/20 17:00 09/27/20 20:29 DC 09/27/20 20:16 78.571 MLS/HR Lactobacillus Rhamnosus (Culturelle) 1 cap BID 09/27/20 21:00 09/30/20 21:58 1 CAP Metoprolol Succinate (Toprol Xl) 50 mg DAILY 09/26/20 09:00 09/30/20 08:34 50 MG Morphine Sulfate (Morphine Sulfate) 2 mg PRN Q4HRS PRN 09/26/20 00:30 09/29/20 19:52 2 MG Nystatin (Nystatin Oral Susp) 5 ml BID 09/29/20 11:45 09/30/20 21:59 5 ML Ondansetron HCl (Zofran) 4 mg PRN Q4HRS PRN 09/26/20 00:30 Oseltamivir Phosphate (Tamiflu) 30 mg BID 09/28/20 09:00 10/03/20 08:59 09/30/20 21:58 30 MG Pantoprazole Sodium (Protonix) 40 mg DAILYAC 09/26/20 07:30 09/30/20 08:34 40 MG Phenol (Chloraseptic) 1 spray PRN Q2HR PRN 09/29/20 06:15 09/29/20 08:13 1 SPRAY Potassium Chloride (Klor-Con) 40 meq 1X ONCE 09/27/20 08:15 09/27/20 08:16 DC 09/27/20 08:19 40 MEQ Sertraline HCl (Zoloft) 50 mg DAILY 09/26/20 09:00 09/30/20 08:32 50 MG Sodium Chloride 1,000 ml @ 555 mls/hr Q1H49M 09/27/20 16:45 09/27/20 19:59 DC 09/27/20 18:41 555 MLS/HR Sodium Chloride/ Sodium Chloride 1,800 ml @ 1,000 mls/hr 1X ONCE 09/27/20 16:30 09/27/20 16:35 DC Tamsulosin HCl (Flomax) 0.4 mg DAILY 09/26/20 09:00 09/30/20 08:35 0.4 MG Tramadol HCl (Ultram) 50 mg PRN Q6HRS PRN 09/26/20 00:30 09/30/20 22:00 50 MG Labs: Lab Laboratory Tests Test 09/30/20 11:41 09/30/20 13:36 09/30/20 13:45 09/30/20 17:01 Glucose (Fingerstick) 149 mg/dL (70-99) 212 mg/dL (70-99) Urine Collection Type Unknown Urine Color Yellow Urine Clarity Clear Urine pH 6.5 (<5.0-8.0) Urine Specific [place] 1.010 (1.000-1.030) Urine Protein Negative mg/dL (NEG-TRACE) Urine Glucose (UA) Negative mg/dL (NEG) Urine Ketones (Stick) Negative mg/dL (NEG) Urine Blood Trace (NEG) Urine Nitrite Negative (NEG) Urine Bilirubin Negative (NEG) Urine Urobilinogen Dipstick 0.2 mg/dL (0.2 mg/dL) Urine Leukocyte Esterase Large (NEG) Urine RBC Occ /HPF (0-2) Urine WBC 11-20 /HPF (0-4) Urine Squamous Epithelial Cells Mod /LPF Urine Bacteria Moderate /HPF (0-FEW) Urine Hyaline Casts Occasional /HPF Urine Mucus Slight /LPF Sodium Level 134 mmol/L (136-145) Potassium Level 3.5 mmol/L (3.5-5.1) Chloride Level 102 mmol/L (98-107) Carbon Dioxide Level 22 mmol/L (21-32) Anion Gap 10 (6-14) Blood Urea Nitrogen 28 mg/dL (7-20) Creatinine 1.4 mg/dL (0.6-1.0) Estimated GFR (Cockcroft-Gault) 35.7 Glucose Level 249 mg/dL (70-99) Calcium Level 8.6 mg/dL (8.5-10.1) Phosphorus Level 3.3 mg/dL (2.6-4.7) Albumin 2.3 g/dL (3.4-5.0) Test 09/30/20 21:02 Glucose (Fingerstick) 168 mg/dL (70-99) Objective: Assessment: 1. COVID-19 pneumonia, improving 2. Influenza B on Tamiflu. 3. Acute renal failure. 4. Leukocytosis. 5. Urinary tract infection. Urine cultures not done. 6. Anemia, status post blood transfusion. 7. Diabetes mellitus 2. 8. Fatigue, resolving. 9. Hyponatremia and metabolic acidosis, improving. 10. History of nephrolithiasis. Plan: Plan of Care 1. Continue supportive care. 2. Complete dexamethasone 3. Complete Tamiflu 4. Continue ceftriaxone pending urine culture 5. Monitor labs and cultures. Discussed with nursing staff. DENZEL LARA MD Oct 01, 2020 08:08
[2020-10-01] MEDS: HEPARIN for SUB-Q USE 5,000 UNIT/ML VIAL. SQ SCH ×2 (09:07→20:04)
[2020-10-01] MEDS: FOLIC ACID 1 MG TABLET. PO SCH (09:07)
[2020-10-01] MEDS: PANTOPRAZOLE 40 MG TABLET.DR. PO SCH (09:08)
[2020-10-01] MEDS: LACTOBACILLUS RHAMNOSUS GG 1 CAPSULE. PO SCH ×2 (09:08→19:54)
[2020-10-01] MEDS: OSELTAMIVIR 30 MG CAPSULE PO SCH ×2 (09:08→19:55)
[2020-10-01] MEDS: SERTRALINE 50 MG TABLET. PO SCH (09:08)
[2020-10-01] MEDS: TAMSULOSIN 0.4 MG CAP.ER.24H. PO SCH (09:08)
[2020-10-01] MEDS: buPROPion 100 MG TABLET. PO SCH (09:08)
[2020-10-01] MEDS: METOPROLOL SUCC 24HR ER 25 MG TAB.ER.24H. PO SCH (09:09)
[2020-10-01] MEDS: NYSTATIN 100,000 UNITS/ML 5 ML ORAL.SUSP. SWSW SCH ×2 (09:10→19:54)
[2020-10-01] MEDS: DEXAMETHASONE 4 MG TABLET PO SCH (09:10)
[2020-10-01] MEDS: traMADol 50 MG TABLET PO PRN ×2 (09:11→21:06)
[2020-10-01 09:52] LABS: BASO # 0.1 x10^3/uL (0.0-0.2); BASO % 0 % (0-3); EOS # 0.2 x10^3/uL (0.0-0.7); EOS % 1 % (0-3); HEMOGLOBIN 8.9 g/dL (12.0-15.5); LYMPH # 1.6 x10^3/uL (1.0-4.8); LYMPH % 6 % (24-48); MEAN CORPUSCULAR HEMOGLOBIN 21 pg (25-35); MEAN CORPUSCULAR HGB CONC 31 g/dL (31-37); MEAN CORPUSCULAR VOLUME 68 fL (79-100); MONO # 1.3 x10^3/uL (0.0-1.1); MONO % 5 % (0-9); NEUT # 24.9 x10^3/uL (1.8-7.7); NEUT % 89 % (31-73); PLATELET COUNT 381 x10^3/uL (140-400); RED CELL DISTRIBUTION WIDTH 20.5 % (11.5-14.5); WHITE BLOOD COUNT 27.9 x10^3/uL (4.0-11.0)
--- NOTE | 2020-10-01 10:43 | PDOC ---
[employer] PROGRESS NOTE Date of Service DOS: DATE: 10/01/20 TIME: 10:42 Chief Complaint Chief Complaint COVID 19 Influenza B Acute renal failure secondary to prerenal azotemia most likely Severe dehydration Leukocytosis secondary to urinary tract infection Urinary tract infection, follow cultures Microcytic anemia Hypokalemia Hyperglycemia secondary to diabetes currently of no clinical significance Failure to thrive UTI History of Present Illness History of Present Illness History of Present Illness Patient is an 85-year-old female with past medical history of diabetes type 2 essential hypertension anxiety and arthritis who was in her usual state of health until approximately 24 hours prior to her admission. Apparently the patient lives by herself and over the course of the last week more or less the patient has been more fatigued and unable to care for herself. She certainly looks quite dehydrated during my encounter and apparently was diagnosed with a urinary tract infection. She has not had proper oral intake most likely secondary to her advancing age and unable to take care of the activities of daily living. The patient does not refer any pain at the time of my evaluation she denies any fever no chills no back pain no CVA tenderness no nausea vomiting or right diarrhea was reported. The patient was evaluated in the emergency department and found to have an acute renal failure and evidence of a urinary tract infection reason why we were asked to admit the patient for further treatment. The patient at the time of my note is laying in bed in no acute distress she is able to drink water and I have encouraged to increase her level of activity as tolerated. Plan of care has been explained detail and all of her concerns were addressed to the best of my abilities. Patient is not a very good historian due to his acuity at the moment. We will reassess in the a.m. Most likely the patient will have to transition to an institution prior to returning to her home if she ever returns given the frailty that she came to the emergency department with 09/27: Patient much better compared to yesterday. Her mentation has definitely improved no complaints during my visit denies any headache blurred vision no nausea no vomiting no diarrhea hemoglobin reported earlier noted. Transfusion of 1 unit of packed red blood cell has been ordered. We will do iron studies prior to the infusion 09/28 - discussed with RN - RN spoke with family regarding blood transfusion - awaiting COVID test results - discussed plan of care with pt - pt evaluated at bedside 09/29 -Patient seen and evaluated at bedside -Dennis RN & rn case mgr -COVID positive -Chart reviewed 09/30/2020 - Pt seen and examined - Dennis RN - Chart reviewed - COVID positive 10/01/2020 No acute events overnight. Patient seen and examined bedside. Dexamethasone DC'd transition to prednisone taper. Pending further ID recommendations. Patient's chart, labs, images were reviewed and discussed with RN Vitals/I&O Vitals/I&O: Vital Signs Date Time Temp Pulse Resp B/P (MAP) Pulse Ox O2 Delivery O2 Flow Rate FiO2 10/01/20 09:11 Room Air 10/01/20 09:09 72 160/70 10/01/20 07:00 98.7 18 97 98.7 09/30/20 15:00 1.0 I & O 09/30/20 09/30/20 10/01/20 15:00 23:00 07:00 Intake Total 200 ml 970 ml Balance 200 ml 970 ml Physical Exam Physical Exam: GENERAL: Alert, oriented x 3 female, appears comfortable HEENT: Normocephalic, atraumatic, anicteric. No thrush. Oral mucosa moist. NECK: Supple, no JVD. LUNGS: Clear bilaterally. No wheezing. No accessory muscle use. HEART: S1, S2. No gallops or murmurs. ABDOMEN: Soft, nontender, nondistended, no rebound or guarding. EXTREMITIES: No edema, no cyanosis. DERMATOLOGIC: Warm and dry. No generalized rash. NEUROLOGIC: Alert and oriented x 3, grossly nonfocal. PSYCHIATRIC: Cooperative, appropriate mood and affect. BACK: Reveals normal curvature. No CVA tenderness. General: Alert, Oriented X3 Heart: Regular rate Lungs: Clear Abdomen: Soft, No masses Extremities: No clubbing, No cyanosis Skin: No breakdown Labs Labs: Laboratory Tests Test 09/30/20 11:41 09/30/20 13:36 09/30/20 13:45 09/30/20 17:01 Glucose (Fingerstick) 149 mg/dL (70-99) 212 mg/dL (70-99) Urine Collection Type Unknown Urine Color Yellow Urine Clarity Clear Urine pH 6.5 (<5.0-8.0) Urine Specific [place] 1.010 (1.000-1.030) Urine Protein Negative mg/dL (NEG-TRACE) Urine Glucose (UA) Negative mg/dL (NEG) Urine Ketones (Stick) Negative mg/dL (NEG) Urine Blood Trace (NEG) Urine Nitrite Negative (NEG) Urine Bilirubin Negative (NEG) Urine Urobilinogen Dipstick 0.2 mg/dL (0.2 mg/dL) Urine Leukocyte Esterase Large (NEG) Urine RBC Occ /HPF (0-2) Urine WBC 11-20 /HPF (0-4) Urine Squamous Epithelial Cells Mod /LPF Urine Bacteria Moderate /HPF (0-FEW) Urine Hyaline Casts Occasional /HPF Urine Mucus Slight /LPF Sodium Level 134 mmol/L (136-145) Potassium Level 3.5 mmol/L (3.5-5.1) Chloride Level 102 mmol/L (98-107) Carbon Dioxide Level 22 mmol/L (21-32) Anion Gap 10 (6-14) Blood Urea Nitrogen 28 mg/dL (7-20) Creatinine 1.4 mg/dL (0.6-1.0) Estimated GFR (Cockcroft-Gault) 35.7 Glucose Level 249 mg/dL (70-99) Calcium Level 8.6 mg/dL (8.5-10.1) Phosphorus Level 3.3 mg/dL (2.6-4.7) Albumin 2.3 g/dL (3.4-5.0) Test 09/30/20 21:02 10/01/20 07:22 10/01/20 09:40 Glucose (Fingerstick) 168 mg/dL (70-99) 112 mg/dL (70-99) White Blood Count 27.9 x10^3/uL (4.0-11.0) Red Blood Count 4.30 x10^6/uL (3.50-5.40) Hemoglobin 8.9 g/dL (12.0-15.5) Hematocrit 29.0 % (36.0-47.0) Mean Corpuscular Volume 68 fL (79-100) Mean Corpuscular Hemoglobin 21 pg (25-35) Mean Corpuscular Hemoglobin Concent 31 g/dL (31-37) Red Cell Distribution Width 20.5 % (11.5-14.5) Platelet Count 381 x10^3/uL (140-400) Neutrophils (%) (Auto) 89 % (31-73) Lymphocytes (%) (Auto) 6 % (24-48) Monocytes (%) (Auto) 5 % (0-9) Eosinophils (%) (Auto) 1 % (0-3) Basophils (%) (Auto) 0 % (0-3) Neutrophils # (Auto) 24.9 x10^3/uL (1.8-7.7) Lymphocytes # (Auto) 1.6 x10^3/uL (1.0-4.8) Monocytes # (Auto) 1.3 x10^3/uL (0.0-1.1) Eosinophils # (Auto) 0.2 x10^3/uL (0.0-0.7) Basophils # (Auto) 0.1 x10^3/uL (0.0-0.2) Assessment and Plan Assessmemt and Plan Problems Medical Problems: (1) KENNA (acute kidney injury) Status: Acute (2) Dehydration Status: Acute (3) Urinary tract infection Status: Acute Comment Review of Relevant I have reviewed the following items [place] (where applicable) has been applied. Justifications for Admission Other Justification JACK ALVAREZ MD Oct 01, 2020 10:43
[2020-10-01 10:46] LABS: % BANDS 1 % (0-9); % EOS 1 % (0-5); % LYMPHS 3 % (24-48); % MONOS 5 % (0-10); % SEGS 90 % (35-66)
[2020-10-01 10:47] LABS: ANISOCYTOSIS MOD; OVALOCYTES OCC; PLT ESTIMATE ADEQUATE (ADEQUATE); POLYCHROMASIA PRESENT
[2020-10-01 11:00] VITALS: BP 166/69
[2020-10-01] MEDS: predniSONE 20 MG TABLET PO SCH (12:48)
[2020-10-01 13:02] LABS: FECAL OB PT NEGATIVE (NEG)
[2020-10-01] MEDS: ALPRAZolam 0.5 MG TABLET PO PRN ×2 (14:21→21:08)
--- NOTE | 2020-10-01 14:34 | NUR ---
SS following up with discharge planning. SS reviewed pt chart and discussed with pt RN. Pt is currently on room air. COVID19 positive. Flu B positive. PT/OT recommended SNU. Pt's family declining usp unit at this time and are requesting home healthcare. Pt's family agreeable to [facility], ; fax [phone]. SS will continue to follow for discharge planning.
[2020-10-01] MEDS: MORPHINE SULFATE 2 MG/ML VIAL. IV PRN (14:41)
[2020-10-01 15:00] VITALS: BP 126/54
[2020-10-01] MEDS: cefTRIAXone IV Push 1 GM VIAL. IVP SCH (19:55)
[2020-10-01 20:20] VITALS: BP 150/61
[2020-10-01 22:32] VITALS: BP 143/66
[2020-10-02 03:00] VITALS: BP 174/70
[2020-10-02 06:57] LABS: BASO % 0 % (0-3); EOS % 0 % (0-3); HEMATOCRIT 28.2 % (36.0-47.0); HEMOGLOBIN 8.4 g/dL (12.0-15.5); LYMPH # 0.8 x10^3/uL (1.0-4.8); LYMPH % 3 % (24-48); MEAN CORPUSCULAR HEMOGLOBIN 21 pg (25-35); MEAN CORPUSCULAR HGB CONC 30 g/dL (31-37); MEAN CORPUSCULAR VOLUME 69 fL (79-100); MONO # 0.8 x10^3/uL (0.0-1.1); MONO % 3 % (0-9); NEUT % 93 % (31-73); PLATELET COUNT 371 x10^3/uL (140-400); RED BLOOD COUNT 4.11 x10^6/uL (3.50-5.40); RED CELL DISTRIBUTION WIDTH 20.6 % (11.5-14.5); WHITE BLOOD COUNT 24.7 x10^3/uL (4.0-11.0)
[2020-10-02 07:00] VITALS: BP 175/64
[2020-10-02] MEDS: INSULIN LISPRO 300 UNITS/3 ML VIAL. SQ SCH ×2 (08:00→12:00)
[2020-10-02] MEDS: ALPRAZolam 0.5 MG TABLET PO PRN (08:45)
[2020-10-02] MEDS: FOLIC ACID 1 MG TABLET. PO SCH (08:45)
[2020-10-02] MEDS: PANTOPRAZOLE 40 MG TABLET.DR. PO SCH (08:45)
[2020-10-02] MEDS: buPROPion 100 MG TABLET. PO SCH (08:45)
[2020-10-02] MEDS: SERTRALINE 50 MG TABLET. PO SCH (08:46)
[2020-10-02] MEDS: OSELTAMIVIR 30 MG CAPSULE PO SCH (08:46)
[2020-10-02] MEDS: predniSONE 20 MG TABLET PO SCH (08:46)
[2020-10-02 08:48] VITALS: BP 174/70
[2020-10-02] MEDS: METOPROLOL SUCC 24HR ER 25 MG TAB.ER.24H. PO SCH (08:48)
[2020-10-02] MEDS: traMADol 50 MG TABLET PO PRN (08:48)
[2020-10-02] MEDS: LACTOBACILLUS RHAMNOSUS GG 1 CAPSULE. PO SCH (08:48)
[2020-10-02] MEDS: TAMSULOSIN 0.4 MG CAP.ER.24H. PO SCH (08:48)
[2020-10-02] MEDS: NYSTATIN 100,000 UNITS/ML 5 ML ORAL.SUSP. SWSW SCH (08:48)
[2020-10-02] MEDS: HEPARIN for SUB-Q USE 5,000 UNIT/ML VIAL. SQ SCH (08:49)
[2020-10-02 09:29] LABS: CALCIUM 8.3 mg/dL (8.5-10.1); CREATININE 1.3 mg/dL (0.6-1.0); GFR 38.8; MAGNESIUM 2.4 mg/dL (1.8-2.4); POTASSIUM 3.6 mmol/L (3.5-5.1)
--- NOTE | 2020-10-02 09:57 | PDOC ---
Infectious Disease Note Subjective: Subjective Patient without complaints On room air Vital Signs: Vital Signs Vital Signs Date Time Temp Pulse Resp B/P (MAP) Pulse Ox O2 Delivery O2 Flow Rate FiO2 10/02/20 08:48 66 174/70 10/02/20 08:48 Room Air 10/02/20 07:00 97.9 16 98 97.9 Physical Exam: PHYSICAL EXAM GENERAL: Alert, oriented x 3 female, appears comfortable HEENT: Normocephalic, atraumatic, anicteric. No thrush. Oral mucosa moist. NECK: Supple, no JVD. LUNGS: Clear bilaterally. No wheezing. No accessory muscle use. HEART: S1, S2. No gallops or murmurs. ABDOMEN: Soft, nontender, nondistended, no rebound or guarding. EXTREMITIES: No edema, no cyanosis. DERMATOLOGIC: Warm and dry. No generalized rash. NEUROLOGIC: Alert and oriented x 3, grossly nonfocal. PSYCHIATRIC: Cooperative, appropriate mood and affect. BACK: Reveals normal curvature. No CVA tenderness. Medications: Inpatient Meds: Current Medications Medications (Trade) Dose Ordered Sig/Tracy Start Time Stop Time Status Last Admin Dose Admin Acetaminophen (Tylenol) 650 mg 1X PRN PRN 09/28/20 09:45 09/28/20 23:00 DC 09/28/20 11:23 650 MG Alprazolam (Xanax) 0.5 mg PRN BID PRN 09/30/20 10:00 10/02/20 08:45 0.5 MG Bupropion HCl (Wellbutrin) 200 mg DAILY 09/26/20 09:00 10/02/20 08:45 200 MG Ceftriaxone Sodium (Rocephin) 1 gm Q24H 09/26/20 21:00 10/01/20 19:55 1 GM Dexamethasone (Decadron) 6 mg DAILYWBKFT 09/29/20 12:00 10/01/20 10:41 DC 10/01/20 09:10 6 MG Dextrose (Dextrose 50%-Water Syringe) 12.5 gm PRN Q15MIN PRN 09/26/20 00:30 Diphenhydramine HCl (Benadryl) 25 mg PRN 1X PRN 09/28/20 09:45 09/28/20 23:00 DC 09/28/20 11:23 25 MG Folic Acid (Folic Acid) 1 mg DAILY 09/26/20 09:00 10/02/20 08:45 1 MG Furosemide (Lasix) 40 mg 1X ONCE 09/27/20 08:15 09/27/20 08:16 DC 09/27/20 08:19 40 MG Heparin Sodium (Porcine) (Heparin Sodium) 5,000 unit Q12H 09/26/20 21:00 10/02/20 08:49 5,000 UNIT Insulin Human Lispro (HumaLOG) 0-7 UNITS TIDWMEALS 09/26/20 08:00 10/01/20 18:13 4 UNITS Iron Sucrose 500 mg/Sodium Chloride 275 ml @ 78.571 mls/ hr 1X ONCE 09/27/20 17:00 09/27/20 20:29 DC 09/27/20 20:16 78.571 MLS/HR Lactobacillus Rhamnosus (Culturelle) 1 cap BID 09/27/20 21:00 10/02/20 08:48 1 CAP Metoprolol Succinate (Toprol Xl) 50 mg DAILY 09/26/20 09:00 10/02/20 08:48 50 MG Morphine Sulfate (Morphine Sulfate) 2 mg PRN Q4HRS PRN 09/26/20 00:30 10/01/20 14:42 DC 10/01/20 14:41 2 MG Nystatin (Nystatin Oral Susp) 5 ml BID 09/29/20 11:45 10/02/20 08:48 5 ML Ondansetron HCl (Zofran) 4 mg PRN Q4HRS PRN 09/26/20 00:30 10/01/20 09:11 4 MG Oseltamivir Phosphate (Tamiflu) 30 mg BID 09/28/20 09:00 10/03/20 08:59 10/02/20 08:46 30 MG Pantoprazole Sodium (Protonix) 40 mg DAILYAC 09/26/20 07:30 10/02/20 08:45 40 MG Phenol (Chloraseptic) 1 spray PRN Q2HR PRN 09/29/20 06:15 09/29/20 08:13 1 SPRAY Potassium Chloride (Klor-Con) 40 meq 1X ONCE 09/27/20 08:15 09/27/20 08:16 DC 09/27/20 08:19 40 MEQ Prednisone (Prednisone) 5 mg DAILY 10/13/20 09:00 10/16/20 08:59 Sertraline HCl (Zoloft) 50 mg DAILY 09/26/20 09:00 10/02/20 08:46 50 MG Sodium Chloride 1,000 ml @ 555 mls/hr Q1H49M 09/27/20 16:45 09/27/20 19:59 DC 09/27/20 18:41 555 MLS/HR Sodium Chloride/ Sodium Chloride 1,800 ml @ 1,000 mls/hr 1X ONCE 09/27/20 16:30 09/27/20 16:35 DC Tamsulosin HCl (Flomax) 0.4 mg DAILY 09/26/20 09:00 10/02/20 08:48 0.4 MG Tramadol HCl (Ultram) 50 mg PRN Q6HRS PRN 09/26/20 00:30 10/02/20 08:48 50 MG Labs: Lab Laboratory Tests Test 10/01/20 11:50 10/01/20 12:03 10/01/20 16:32 10/01/20 20:51 Stool Occult Blood Negative (NEG) Glucose (Fingerstick) 207 mg/dL (70-99) 255 mg/dL (70-99) 309 mg/dL (70-99) Test 10/02/20 05:00 10/02/20 07:35 White Blood Count 24.7 x10^3/uL (4.0-11.0) Red Blood Count 4.11 x10^6/uL (3.50-5.40) Hemoglobin 8.4 g/dL (12.0-15.5) Hematocrit 28.2 % (36.0-47.0) Mean Corpuscular Volume 69 fL (79-100) Mean Corpuscular Hemoglobin 21 pg (25-35) Mean Corpuscular Hemoglobin Concent 30 g/dL (31-37) Red Cell Distribution Width 20.6 % (11.5-14.5) Platelet Count 371 x10^3/uL (140-400) Neutrophils (%) (Auto) 93 % (31-73) Lymphocytes (%) (Auto) 3 % (24-48) Monocytes (%) (Auto) 3 % (0-9) Eosinophils (%) (Auto) 0 % (0-3) Basophils (%) (Auto) 0 % (0-3) Neutrophils # (Auto) 23.0 x10^3/uL (1.8-7.7) Lymphocytes # (Auto) 0.8 x10^3/uL (1.0-4.8) Monocytes # (Auto) 0.8 x10^3/uL (0.0-1.1) Eosinophils # (Auto) 0.0 x10^3/uL (0.0-0.7) Basophils # (Auto) 0.0 x10^3/uL (0.0-0.2) Sodium Level 139 mmol/L (136-145) Potassium Level 3.6 mmol/L (3.5-5.1) Chloride Level 107 mmol/L (98-107) Carbon Dioxide Level 20 mmol/L (21-32) Anion Gap 12 (6-14) Blood Urea Nitrogen 35 mg/dL (7-20) Creatinine 1.3 mg/dL (0.6-1.0) Estimated GFR (Cockcroft-Gault) 38.8 Glucose Level 132 mg/dL (70-99) Calcium Level 8.3 mg/dL (8.5-10.1) Magnesium Level 2.4 mg/dL (1.8-2.4) Glucose (Fingerstick) 134 mg/dL (70-99) Objective: Assessment: 1. COVID-19 pneumonia, improving 2. Influenza B on Tamiflu. 3. Acute renal failure. 4. Leukocytosis. 5. Urinary tract infection. Urine cultures not done. 6. Anemia, status post blood transfusion. 7. Diabetes mellitus 2. 8. Fatigue, resolving. 9. Hyponatremia and metabolic acidosis, improving. 10. History of nephrolithiasis. Plan: Plan of Care 1. Continue supportive care. 2. Complete Tamiflu 3 Continue ceftriaxone through today and then dc, repeat uc negative Patient can be discharged home from ID standpoint Discussed with nursing staff. DENZEL LARA MD Oct 02, 2020 09:56
--- NOTE | 2020-10-02 10:44 | NUR ---
SS following up with discharge planning. SS reviewed pt chart and discussed with pt RN. Pt is currently on room air. COVID19 positive. Flu positive. Pt on IV Rocephin. Per ID, IV Rocephin to stop after today's dose. PT/OT recommended fpc unit. Pt's family declining fpc unit but agreeable to home healthcare with [facility], ; fax [phone]. Referral phoned and faxed to [facility]. SS will continue to follow for discharge planning.
[2020-10-02] MEDS ORDERED: OSEL30CA PO (11:19)
[2020-10-02] MEDS ORDERED: PRED-220 PO (11:19)
[2020-10-02] MEDS ORDERED: PRED5TAB PO (11:19)
[2020-10-02] MEDS ORDERED: PRED20TA PO (11:19)
--- NOTE | 2020-10-02 11:21 | SNU/HH DC ---
DISCHARGE WITH HOME HEALTH DISCHARGE INFORMATION: Discharge Date: Oct 02, 2020 Final Diagnosis: Problems Medical Problems: (1) KENNA (acute kidney injury) Status: Acute (2) Dehydration Status: Acute (3) Urinary tract infection Status: Acute Condition on Discharge: Stable CODE STATUS: Code Status: Full HOME HEALTH: Face to Face: I certify this patient is under my care and that I, or a nurse practitioner or physician's bakery assistant working with me, had a face to face encounter that meets the physician face to face encounter requirements with this patient on []. Medical Complications: Other (Arthritis with flares) RN For Eval/Treatment: Yes Physical Therapy For: Evalulation/Treatment Occupational Therapy For: Evaluation/Treatment Home Health Aide For: Self-care Pt Meets Homebound Status: Poor coordination w/ amb., Frequent falls w/ injury, Limited distance walking, Unable to negotiate home POST DISCHARGE ORDERS: Activity Instructions for Disc: Activity as tolerated DIET AFTER DISCHARGE: ADA FOLLOW-UP: Follow up with: PCP within 2 weeks of discharge CERTIFICATION STATEMENT: Certification Statement: Certification Statement: Based on the above finding, I certify that this patient is confined to the home and needs intermittent senior living care, physical therapy and/or speech therapy, or continues to need occupational therapy.~ This patient is under my care, and I have initiated the establishment of the plan of care.~ This patient will be followed by myself or a community physician who will periodically review the plan of care. Home Meds Active Scripts Prednisone (PREDNISONE) 5 Mg Tablet, 5 MG PO DAILY for covid for 3 Days, #3 TAB Prov:JACK ALVAREZ MD 10/02/20 Prednisone (PREDNISONE ) 10 Mg Tablet, 10 MG PO DAILY for covid for 3 Days, #3 TAB Prov:JACK ALVAREZ MD 10/02/20 Prednisone (PREDNISONE) 20 Mg Tablet, 20 MG PO DAILY for covid for 3 Days, #3 TAB Prov:JACK ALVAREZ MD 10/02/20 Prednisone (PREDNISONE ) 10 Mg Tablet, 30 MG PO DAILY for covid for 3 Days, #9 TAB Prov:JACK ALVAREZ MD 10/02/20 Oseltamivir Phosphate (TAMIFLU) 30 Mg Capsule, 30 MG PO BID for influenza for 2 Days, #4 CAP Prov:JACK ALVAREZ MD 10/02/20 Tamsulosin Hcl (FLOMAX) 0.4 Mg Cap.er.24h, 0.4 MG PO DAILY, #30 BOT Prov:JACK NAVARRO MD 10/07/14 Phenazopyridine Hcl (PYRIDIUM) 200 Mg Tablet, 200 MG PO TID, #15 BOT Prov:JACK NAVARRO MD 10/07/14 Reported Medications Alprazolam (ALPRAZOLAM) 0.5 Mg Tablet, 1 TAB PO PRN BID PRN for ANXIETY 09/26/20 Bupropion Hcl (WELLBUTRIN) 100 Mg Tablet, 200 MG PO DAILY, TAB 10/05/14 Tofacitinib Citrate (XELJANZ) 5 Mg Tablet, 5 MG PO BID 10/05/14 Metoprolol Succinate (METOPROLOL SUCCINATE ( XL )) 25 Mg Tab.er.24h, 2 TAB PO DAILY, #30 TAB 5 Refills 10/04/14 Folic Acid (FOLIC ACID) 1 Mg Tablet, 1 TAB PO DAILY, #90 TAB 1 Refill 10/04/14 Sertraline Hcl (SERTRALINE HCL) 50 Mg Tablet, 50 MG PO DAILY for ANTI- DEPRESSANT, TAB 0 Refills 10/04/14 Esomeprazole Strontium (ESOMEPRAZOLE CAPSULE) 40 Mg Capsule.dr, 40 MG PO DAILYAC, #30 CAP 0 Refills 10/04/14 Methotrexate Sodium (METHOTREXATE) 2.5 Mg Tablet, 7 TAB PO WEEKLY, #32 TAB 2 Refills 10/04/14 Discontinued Reported Medications Hydrocodone/Acetaminophen (Hydrocodone-Acetamin 10-325 mg) 1 Each Tablet, 1 TAB PO Q6HRS for PAIN R/T RA 09/26/20 Tramadol Hcl (TRAMADOL HCL) 50 Mg Tablet, 1 TAB PO PRN Q6HRS PRN for PAIN 09/26/20 Bupropion Hcl (BUPROPION XL) 150 Mg Tab.er.24h, 1 TAB PO QAM for DEPRESSION 09/26/20 Sertraline Hcl (SERTRALINE HCL) 100 Mg Tablet, 1 TAB PO DAILY for DEPRESSION 09/26/20 Losartan Potassium (LOSARTAN POTASSIUM) 100 Mg Tablet, 100 MG PO DAILY, TAB 10/05/14 Ibuprofen (IBUPROFEN) 200 Mg Tablet, 400 MG PO PRN TID PRN for PAIN 10/04/14 Hydrocodone/Apap 10-325 (NORCO 10-325 TABLET) 1 Each Tablet, 1-2 TAB PO Q4-6HRS, #40 TAB 10/04/14 JACK ALVAREZ MD Oct 02, 2020 11:21
--- NOTE | 2020-10-02 11:32 | NUR ---
SS following up with discharge planning. Discharge orders received for home with home healthcare. Discharge orders phoned and faxed to [facility], ; fax [phone]. Pt's RN notified.
--- NOTE | 2020-10-02 12:28 | NUR ---
SS following up with discharge planning. Pt's daughter stating that she cannot transport pt to home due to weather. Pt's daughter requesting w/c transport to home. Pt will discharge between 1330 and 1400 to home via [facility]. Pt's RN and pt's daughter notified.
[2020-10-02] MEDS ORDERED: BUPR150T21 PO (13:15)
[2020-10-02] MEDS ORDERED: TRAM50TA PO (13:15)
[2020-10-02] MEDS ORDERED: HYDR-2769 PO (13:17)
[2020-10-02] MEDS ORDERED: LIDO:MAALOX:BENADRYL 1:1:1 180 ML BOTTLE. PO PRN (13:30)
--- NOTE | 2020-10-02 14:19 | NUR ---
Discharge Note: TAMIKA STILES [address] Discharge instructions and discharge home medications reviewed with Family Member and a copy given. All questions have been answered and understanding verbalized. The following instructions and handouts were given: spoke to daughter by telephone, medication instructions, s/p COVID and FLU education Discontinued lines and drains: peripheral IV discontinued, dressing, clean, dry and intact. Patient discharged to home with home health with transport via wheelchair
--- NOTE | 2020-10-02 14:26 | NUR ---
Spoke with daughter by telephone to go over discharge papers. Sent copy home with patient in belongings. Daughter verbalized understanding of all discharge instructions. Provided phone number to call if more questions arise.
[2020-10-04] MEDS ORDERED: predniSONE 10 MG TABLET PO SCH (09:00)
--- NOTE | 2020-10-04 20:46 | PDOC3 ---
[facility]-Discharge Summary Date of Admission: Date of Admission: Sep 26, 2020 Date of Discharge: Date of Discharge: Oct 02, 2020 Discharge Diagnosis: Discharge Diagnosis: COVID 19 Influenza B Acute renal failure secondary to prerenal azotemia most likely Severe dehydration Leukocytosis secondary to urinary tract infection Urinary tract infection, follow cultures Microcytic anemia Hypokalemia Hyperglycemia secondary to diabetes currently of no clinical significance Failure to thrive UTI Hospital Course: Hospital Course: 85-year-old female with past medical history of diabetes type 2 essential hypertension anxiety and arthritis who was in her usual state of health until approximately 24 hours prior to her admission. Apparently the patient lives by herself and over the course of the last week more or less the patient has been more fatigued and unable to care for herself. She certainly looks quite dehydrated during my encounter and apparently was diagnosed with a urinary tract infection. She has not had proper oral intake most likely secondary to her advancing age and unable to take care of the activities of daily living. The patient does not refer any pain at the time of my evaluation she denies any fever no chills no back pain no CVA tenderness no nausea vomiting or right diarrhea was reported. The patient was evaluated in the emergency department and found to have an acute renal failure and evidence of a urinary tract infection reason why we were asked to admit the patient for further treatment. The patient at the time of my note is laying in bed in no acute distress she is able to drink water and I have encouraged to increase her level of activity as tolerated. Plan of care has been explained detail and all of her concerns were addressed to the best of my abilities. Patient is not a very good historian due to his acuity at the moment. We will reassess in the a.m. Most likely the patient will have to transition to an institution prior to returning to her home if she ever returns given the frailty that she came to the emergency department with 09/27: Patient much better compared to yesterday. Her mentation has definitely improved no complaints during my visit denies any headache blurred vision no nausea no vomiting no diarrhea hemoglobin reported earlier noted. Transfusion of 1 unit of packed red blood cell has been ordered. We will do iron studies prior to the infusion 09/28 - discussed with RN - RN spoke with family regarding blood transfusion - awaiting COVID test results - discussed plan of care with pt - pt evaluated at bedside 09/29 -Patient seen and evaluated at bedside -Dw RN & case mgr -COVID positive -Chart reviewed 09/30/2020 - Pt seen and examined - Dennis RN - Chart reviewed - COVID positive 10/01/2020 No acute events overnight. Patient seen and examined bedside. Dexamethasone DC'd transition to prednisone taper. Pending further ID recommendations. Patient's chart, labs, images were reviewed and discussed with RN Patient will be sent home to complete her tamiflu and course of prednisone taper. The rest of her hospital course was uneventful. Disposition: Disposition/Orders: D/C to Home w/ HH Activity: Activity: Resume previous activity Diet: Diet: Regular Medications: Home Meds Active Scripts Prednisone (PREDNISONE) 5 Mg Tablet, 5 MG PO DAILY for covid for 3 Days, #3 TAB Prov:JACK ALVAREZ MD 10/02/20 Prednisone (PREDNISONE ) 10 Mg Tablet, 10 MG PO DAILY for covid for 3 Days, #3 TAB Prov:JACK ALVAREZ MD 10/02/20 Prednisone (PREDNISONE) 20 Mg Tablet, 20 MG PO DAILY for covid for 3 Days, #3 TAB Prov:JACK ALVAREZ MD 10/02/20 Prednisone (PREDNISONE ) 10 Mg Tablet, 30 MG PO DAILY for covid for 3 Days, #9 TAB Prov:JACK ALVAREZ MD 10/02/20 Oseltamivir Phosphate (TAMIFLU) 30 Mg Capsule, 30 MG PO BID for influenza for 2 Days, #4 CAP Prov:JACK ALVAREZ MD 10/02/20 Reported Medications Hydrocodone Bit/Acetaminophen (HYDROCODONE-APAP 10-325 ) 1 Tab Tablet, 1 TAB PO PRN Q6HRS PRN for PAIN, TAB 0 Refills 10/02/20 Tramadol Hcl (TRAMADOL HCL) 50 Mg Tablet, 50 TAB PO PRN Q6HRS PRN for PAIN 10/02/20 Bupropion Hcl (BUPROPION XL) 150 Mg Tab.er.24h, 150 TAB PO QAM for DEPRESSION 10/02/20 Alprazolam (ALPRAZOLAM) 0.5 Mg Tablet, 1 TAB PO PRN BID PRN for ANXIETY 09/26/20 Folic Acid (FOLIC ACID) 1 Mg Tablet, 1 TAB PO DAILY, #90 TAB 1 Refill 10/04/14 Sertraline Hcl (SERTRALINE HCL) 50 Mg Tablet, 100 MG PO DAILY for , TAB 0 Refills 10/04/14 Discontinued Reported Medications Hydrocodone/Acetaminophen (Hydrocodone-Acetamin 10-325 mg) 1 Each Tablet, 1 TAB PO Q6HRS for PAIN R/T RA 09/26/20 Sertraline Hcl (SERTRALINE HCL) 100 Mg Tablet, 1 TAB PO DAILY for DEPRESSION 09/26/20 Losartan Potassium (LOSARTAN POTASSIUM) 100 Mg Tablet, 100 MG PO DAILY, TAB 10/05/14 Ibuprofen (IBUPROFEN) 200 Mg Tablet, 400 MG PO PRN TID PRN for PAIN 10/04/14 Hydrocodone/Apap 10-325 (NORCO 10-325 TABLET) 1 Each Tablet, 1-2 TAB PO Q4-6HRS, #40 TAB 10/04/14 Scheduled Bupropion Hcl (Bupropion Xl), 150 TAB PO QAM, (Reported) Folic Acid (Folic Acid), 1 TAB PO DAILY, (Reported) Oseltamivir Phosphate (Tamiflu), 30 MG PO BID Prednisone (Prednisone ), 30 MG PO DAILY Prednisone (Prednisone), 20 MG PO DAILY Prednisone (Prednisone ), 10 MG PO DAILY Prednisone (Prednisone), 5 MG PO DAILY Sertraline Hcl (Sertraline Hcl), 100 MG PO DAILY, (Reported) Scheduled PRN Alprazolam (Alprazolam), 1 TAB PO PRN BID PRN for ANXIETY, (Reported) Hydrocodone Bit/Acetaminophen (Hydrocodone-Apap 10-325 ), 1 TAB PO PRN Q6HRS PRN for PAIN, (Reported) Tramadol Hcl (Tramadol Hcl), 50 TAB PO PRN Q6HRS PRN for PAIN, (Reported) Discontinued Medications Hydrocodone/Acetaminophen (Hydrocodone-Acetamin 10-325 mg), 1 TAB PO Q6HRS, (Reported) Hydrocodone/Apap 10-325 ([place] 10-325 Tablet), 1-2 TAB PO Q4-6HRS, (Reported) Ibuprofen (Ibuprofen), 400 MG PO PRN TID PRN for PAIN, (Reported) Losartan Potassium (Losartan Potassium), 100 MG PO DAILY, (Reported) Sertraline Hcl (Sertraline Hcl), 1 TAB PO DAILY, (Reported) Total Time: Total Time: Total time spent was 55 minutes in preparing scripts, discharge planning with SW and RN, and preparing this discharge summary. Patient seen and examined on day of discharge. Goyofation of Admission Dx: Justifications for Admission: Justification of Admission Dx: Yes JACK ALVAREZ MD Oct 04, 2020 20:46
[2020-10-07] MEDS ORDERED: predniSONE 20 MG TABLET PO SCH (09:00)
[2020-10-10] MEDS ORDERED: predniSONE 10 MG TABLET PO SCH (09:00)
[2020-10-13] MEDS ORDERED: predniSONE 5 MG TABLET PO SCH (09:00)
== END 2020-10-02 14:00 | disposition home health service (06) | DRG 871 ==
LOC: ER 20:50 → 4 NORTH 09-26 00:09 → 2 SOUTH 09-28 03:40
PROVIDERS: ADMIT Internal Medicine; ATTEND Internal Medicine
PROC: 30233N1 Transfusion of Nonautologous Red Blood Cells into Peripheral Vein, Percutaneous Approach (ICD-10-PCS; principal; 2020-09-27)
DX: A41.89 Other specified sepsis (principal); N17.0 Acute kidney failure with tubular necrosis; J10.08 Influenza due to other identified influenza virus with other specified pneumonia; J12.82 Pneumonia due to coronavirus disease 2019; U07.1 COVID-19; N39.0 Urinary tract infection, site not specified; E87.1 Hypo-osmolality and hyponatremia; J44.0 Chronic obstructive pulmonary disease with (acute) lower respiratory infection; D50.9 Iron deficiency anemia, unspecified; E11.65 Type 2 diabetes mellitus with hyperglycemia; E78.5 Hyperlipidemia, unspecified; E86.0 Dehydration; E87.6 Hypokalemia; H91.93 Unspecified hearing loss, bilateral; I10 Essential (primary) hypertension; M19.90 Unspecified osteoarthritis, unspecified site; Z87.442 Personal history of urinary calculi; Z96.643 Presence of artificial hip joint, bilateral; Z96.653 Presence of artificial knee joint, bilateral; F41.9 Anxiety disorder, unspecified; Z79.899 Other long term (current) drug therapy
CPT/HCPCS: 36415; 71045; 76770; 80048; 80069; 81001; 82274; 82436; 82570; 82607; 82962; 83540; 83550; 83735; 84100; 84133; 84300; 85007; 85014; 85018; 85025; 86078; 86850; 86900; 86901; 86920; 87040; 87086; 87804; 93005; 96361; 96374; 99285; J0696; J1644; J1756; J1815; J1940; J2270; J2405; J7030; J7050; J7512; P9016; U0003; 97110-GO; 97116-GP; 97530-GO; 97530-GP; 97535-GO; G0378; Q0163